=== PATIENT | female | born 1950 | race Caucasian/White ===

== ENCOUNTER 2018-07-25 13:48 | Inpatient (IN) ==
--- NOTE | 2018-07-25 14:20 | Emergency Department Note ---
Disposition Clinical Impression: Dyspnea Qualifiers: Dyspnea type: unspecified Qualified Code(s): R06.00 - Dyspnea, unspecified Anemia Qualifiers: Anemia type: unspecified type Qualified Code(s): D64.9 - Anemia, unspecified Chronic kidney disease (CKD) Qualifiers: Chronic kidney disease stage: unspecified stage Qualified Code(s): N18.9 - C hronic kidney disease, unspecified Disposition: Admitted As Inpatient Condition: Fair Forms: ED Satisfaction Letter Time of Disposition: 15:18 SOB HPI - General Chief Complaint: ED Shortness of Breath/Dyspnea Stated Complaint: SOB Time Seen by Provider: 07/25/18 14:00 Source: patient, family Mode of arrival: ambulatory Limitations: no limitations Nursing Notes Reviewed: Yes Vital Signs Reviewed: Yes - History of Present Illness Pt Subjective Complaint: shortness of breath Onset (ago): month(s) Severity: severe Consistency/Duration: intermittent, gradually worsening Improves with: nothing Worsens with: exertion Associated symptoms: Reports: cough, other (Edema) Treatment prior to arrival: other (Saw the software development intern and had an outpatient chest x-ray suggestive of congestion) - Related Data Home Medications Medication Instructions Recorded Confirmed ARIPiprazole [Abilify] 5 mg PO DAILY 09/17/17 11/25/17 Aspirin 81 mg PO DAILY 09/17/17 11/25/17 Folic Acid 1 mg PO DAILY 09/17/17 11/25/17 Furosemide [Lasix] 40 mg PO BID 09/17/17 11/25/17 Liraglutide [Victoza 2-Ben] 1.8 mg SQ QAM 09/17/17 11/25/17 Lovastatin 10 mg PO DAILY 09/17/17 11/25/17 Mirtazapine [Remeron] 15 mg PO HS 09/17/17 11/25/17 Multivit-Min/FA/Lycopen/Lutein [A 1 tab PO DAILY 09/17/17 11/25/17 Thru Z Select Multivit Tab] Omeprazole [PriLOSEC] 20 mg PO DAILY 09/17/17 11/25/17 Paricalcitol [Zemplar] 2 mcg PO DAILY 09/17/17 11/25/17 Timolol [Betimol] 1 drop RIGHT EYE DAILY 09/17/17 11/25/17 Venlafaxine HCl [Venlafaxine HCl 150 mg PO TID 09/17/17 11/25/17 ER] amLODIPine [Norvasc] 10 mg PO DAILY 09/17/17 11/25/17 lamoTRIgine [Lamictal] 200 mg PO DAILY 09/17/17 11/25/17 rOPINIRole [Requip] 0.5 mg PO TID 09/17/17 11/25/17 Ascorbate Calcium [Vitamin C] 1,000 mg PO DAILY 11/09/17 11/25/17 Clobetasol Propionate [Clobex] 1 appl TP 3XW 11/09/17 11/25/17 Cyanocobalamin (Vitamin B-12) 1,000 mcg PO DAILY 11/09/17 11/25/17 [Vitamin B12] Gabapentin [Neurontin] 800 mg PO BID 11/09/17 11/25/17 Levothyroxine Sodium [Levo-T] 112 mcg PO DAILY 11/09/17 11/25/17 Losartan Potassium [Cozaar] 100 mg PO DAILY 11/09/17 11/25/17 Metoprolol Succinate [Toprol Xl] 50 mg PO DAILY 11/09/17 11/25/17 Mv,Fe,Min/Lutein [A Thru Z Select 1 tab PO DAILY 11/09/17 11/25/17 Women's Tablet] Pimecrolimus [Elidel] 1 appl TP BID 11/09/17 11/25/17 Subcutaneous Insulin Pump [T:Slim] 1 each MC CONT 11/09/17 11/25/17 Tacrolimus [Protopic] 1 appl TP DAILY 11/09/17 11/25/17 Triamcinolone Acetonide 1 appl TP BID 11/09/17 11/25/17 Zolpidem [Ambien] 10 mg PO HS 11/09/17 11/25/17 Previous Rx's Medication Instructions Recorded HYDROcodone/Acet 7.5/325 mg [[place] 1 tab PO Q6HR PRN 3 Days #12 tablet 11/09/17 7.5-325 mg] Allergies Allergy/AdvReac Type Severity Reaction Status Date / Time Antifungal - Imidazole Allergy skin Verified 11/25/17 07:32 peeling clonazepam [From Klonopin] Allergy rash,nausea Verified 11/25/17 07:32 Sulfa (Sulfonamide Allergy See Verified 11/25/17 07:32 Antibiotics) Comments All systems ED: reviewed and negative except as stated. Constitutional: Reports: as per HPI Eyes: Reports: as per HPI ENT ED: Reports: as per HPI Cardiovascular: Reports: dyspnea on exertion, edema Respiratory: Reports: cough, dyspnea Gastrointestinal: Reports: as per HPI Genitourinary: Reports: as per HPI Musculoskeletal: Reports: as per HPI Integumentary: Reports: as per HPI Neurological: Reports: as per HPI Psychiatric: Reports: as per HPI Endocrine: Reports: as per HPI Hematological/Lymphatic: Reports: as per HPI Allergic/Immunologic: Reports: as per HPI Past Medical History - Past Medical History Source: patient Medical history: Reports: arthritis, diabetes, glaucoma, hyperlipidemia, hypertension, renal disease, thyroid disease Surgical history: Reports: appendectomy, cholecystectomy, hysterectomy, knee replacement, orthopedic, other, thyroidectomy, other Psychiatric history: Reports: anxiety, depression ELECTROMYOGRAPHIC TECHNICIAN history: Reports: no ELECTROMYOGRAPHIC TECHNICIAN history - Social History Smoking Status: Never smoker Smokeless Tobacco Status: No Alcohol use: Reports: none Drug use: Reports: none Physical Exam Tachypneic, visibly dyspneic - General Limitations: no limitations General appearance: alert - Head Head exam: atraumatic - Eye Eye exam: Present: normal appearance - ENT ENT exam: normal exam - Neck Neck exam: Present: normal inspection, full ROM - Chest Chest inspection: Present: normal inspection, symmetric chest wall rise - Respiratory Respiratory exam: Present: other (Mild rhonchi to inferior posterior areas bilaterally) - Cardiovascular Cardiovascular exam: Present: regular rate, normal rhythm, normal heart sounds - Rectal Exam Rectal exam: Present: normal inspection, normal rectal tone. Absent: bloody stool - Extremities Exam Extremities exam: Present: other (Peripheral edema at sock line) - Neurological Exam Neurological exam: Present: alert, oriented X3, CN II-XII intact - Psychiatric Psychiatric exam: Present: normal affect, normal mood - Skin Skin exam: Present: warm, dry, intact Course Course Narrative: Patient arrives complaining of dyspnea. She saw her software development intern yesterday who instructed her to present to the emergency department for possible congestive heart failure. Workup initiated Vital Signs Temperature 99.0 F 07/25/18 13:50 Pulse Rate 96 07/25/18 13:50 Respiratory Rate 20 07/25/18 13:50 Blood Pressure 142/70 07/25/18 13:50 O2 Sat by Pulse Oximetry 98 07/25/18 13:50 Temperature 99.0 F 07/25/18 14:26 Pulse Rate 96 07/25/18 14:26 Respiratory Rate 20 07/25/18 14:26 Blood Pressure 142/70 07/25/18 14:26 O2 Sat by Pulse Oximetry 98 07/25/18 14:26 Oxygen Delivery Oxygen Delivery Room Air Shortness of Breath/Dyspnea - Medical Records Medical records reviewed: Yes I reviewed the patient's medical records. - Lab Data Lab results reviewed: Yes I reviewed the patient's lab results. Result diagrams: 07/25/18 13:53 07/25/18 13:53 Lab Results 07/25/18 07/25/18 07/25/18 Range/Units 13:53 13:53 13:53 WBC 6.3 (4.3-11.1) K/mcL RBC 2.92 L (3.82-4.97) M/mcL Hgb 8.1 L (11.5-15.4) g/dL Hct 25.1 L (35.3-44.9) % MCV 86.0 (83.0-100.0) fL MCH 27.7 L (28.0-33.3) pg MCHC 32.3 (31.6-35.5) g/dL RDW 15.2 H (11.5-14.5) % Plt Count 340 (140-400) K/mcL MPV 8.6 L (9.4-12.4) fL Immature Gran % 0.5 (0-4) % Seg Neutrophils % 68.1 % Lymphocytes % 13.4 % Monocytes % 14.4 % Eosinophils % 3.0 % Basophils % 0.6 % Neutrophils # 4.3 (1.6-8.9) K/mcL Lymphocytes # 0.8 (0.6-4.6) K/mcL Monocytes # 0.9 (0.0-1.3) K/mcL Eosinophils # 0.2 (0.0-0.6) K/mcL Basophils # 0.0 (0.0-0.2) K/mcL Sodium 124 L (136-145) mEq/L Potassium 4.6 (3.5-5.1) mEq/L Chloride 93 L (98-107) mEq/L Carbon Dioxide 23 (23-29) mEq/L BUN 17 (8-23) mg/dL Creatinine 1.40 H (0.60-1.20) mg/dL Est GFR ( Amer) 46 L (> 60) Est GFR (Non-Af Amer) 38 L (> 60) BUN/Creatinine Ratio 12 (6-26) Glucose 253 H (70-105) mg/dL Calculated Osmolality 268 L (280-300) Calcium 8.8 (8.6-10.3) mg/dL Troponin I < 0.03 (< 0.04) ng/mL B-Natriuretic Peptide 358 H (Less than 100) pg/mL - Radiology Data Radiology results reviewed: Yes I reviewed the patient's radiology results. - EKG Data EKG attestation: Yes I reviewed and interpreted this EKG. EKG results narrative: Normal sinus rhythm first-degree AV block LVH rate 98 GA 248 QRS 94 QT/QTC 321/376
[2018-07-25] MEDS ORDERED: Furosemide 40 MG/4 ML VIAL IVP ONE (14:24)
[2018-07-25 15:00] LABS: BUN/Creatinine Ratio 12 (6-26); Blood Urea Nitrogen 17 mg/dL (8-23); Calcium 8.8 mg/dL (8.6-10.3); Carbon Dioxide 23 mEq/L (23-29); Chloride 93 mEq/L (98-107); Glucose 253 mg/dL (70-105); Osmolality,Calculated 268 (280-300); Potassium 4.6 mEq/L (3.5-5.1); Sodium 124 mEq/L (136-145); Troponin I < 0.03 ng/mL (< 0.04); eGFR For Non-African Americans 38 (> 60)
[2018-07-25 15:01] LABS: Basophils % 0.6 %; Eosinophils # 0.2 K/mcL (0.0-0.6); Hematocrit 25.1 % (35.3-44.9); Hemoglobin 8.1 g/dL (11.5-15.4); Immature Granulocytes % 0.5 % (0-4); Lymphocytes # 0.8 K/mcL (0.6-4.6); Lymphocytes % 13.4 %; Mean Corpuscular HGB Conc 32.3 g/dL (31.6-35.5); Mean Corpuscular Hemoglobin 27.7 pg (28.0-33.3); Mean Platelet Volume 8.6 fL (9.4-12.4); Monocytes # 0.9 K/mcL (0.0-1.3); Monocytes % 14.4 %; Neutrophils # 4.3 K/mcL (1.6-8.9); Platelet Count 340 K/mcL (140-400); Red Blood Count 2.92 M/mcL (3.82-4.97); Red Cell Distribution Width 15.2 % (11.5-14.5); Segmented Neutrophils % 68.1 %
--- NOTE | 2018-07-25 17:28 | Event Note ---
Date of Encounter: 07/25/18 Time of Encounter: 17:30 I examined this patient and my medical decision-making was reviewed with the Resident Physician Dr Ellis. I agree with the documented findings, disposition and treatment plan as described except to the extent set forth below. to serve as attestation, awaiting completion of H&P by resident Ms Luther has pmhx arthritis, diabetes, glaucoma, hyperlipidemia, hypertension,ckd, thyroid disease She ahs recent history of dyspnea on exertion and le edema. She was referred outpt to cardiology and had appt with plan for outpt echo. CXR was done and revealed pulm vasc congestion and possible bl pleural effusions. awake, dry hacking cough x5 months, le edema worsened with + orthopnea and hercules with ambulating house. no cp, pressure, palpitations. no recent travel, no exposure to occupational hazards. no sputum, fevers or chills. gen- alert, awake,appears stated age eyes- pupils equal round cv- reg rate and rhythm, normal s1,s2, no murmurs appreciated, trace pitting bl le edema no jvd lungs-diffuse exp wheezing, diminsihed bs throughout, no crackles, rhonchi appreciated, normal resp effort on ra abd- soft, non tender, non distended, + bs neuro- AAOx3,cn intact, no focal deficits Dyspnea on Exertion/LE edema- suspect given CXR and BNP 358 new dx CHF -CXR without consolidation and reads as possible effusions but definitive pulm vasc congestion -other potential cause of dyspnea may be her chronic anemia- see work up below or related to chronic cough -will trend trops, check echo, maintain on tele, strict i/os weights, serial ekgs -cardiac risk stratification with tsh, a1c, lipids but nuclear stress test 10/2017 negative for ischemia or infarct EF 70% -s/p 40 mg IV lasix this evening in ED, will assess output in am -cont home statin, bb, arb DM with insulin pump- accu checks,NO SSI, pt gives insulin via pump on checks on her own, prn hypoglycemics Hypervolemic Hyponatremia On chart review this appears chronic in nature with baseline since December being anywhere from 121-128 124 on admit - diurese, urine studies ordered, fluid restrict, seizure precautions, neuro checks Anemia, on chart review it appears she has been anemia in past but baseline is unknown, she notes months of decreasing hgb-cannot determine if acute, acute on chronic- egd 07/25 earlier today (preformed for chronic cough) normal,normal cscope 2 years ago per pt, fobt in ER is negative, check ua, at this time scds only and cont to monitor, transfuse less than hgb 7, check iron studies ?related to CKD, follows with Dr Hartley Chronic dry hacking cough- cxr neg, check vrp, flu, egd normal, speech eval to rule out aspiration, given wheezing prn nebs, may be related to chf, check dimer and may end up imaging chest pending results, outpt provider was planning on pulm eval likely being needed in near future GERD- egd today normal, omprazole HLD-statin HTN-norvasc,losartan, BB CKD stage uk- bl creat appears on our meditech review to be 1.4-1.7 this year- creat 1.4 stable, monitor with diuresis hypothyroidism-synthroid--new dose is 200 mcg daily Lamictal/Abilify are for insomnia per pt?- need to confirm doses with pharmacy as pt does not know them, hold tonight Immunosupressive Elidel?? pt not sure if taking this or why- await pharm med rec vte ppx scds further diagnoses and treatment as documented by resident
--- NOTE | 2018-07-25 18:07 | Internal Med History&Physical ---
<Ciarra Ellis - Last Filed: 07/25/18 18:08> Date of Encounter: 07/25/18 Time of Encounter: 18:07 Internal Medicine - H&P: HPI Chief complaint: shortness of breath Admitted From: Emergency Dept Plans for Post Hospital Care: Home History of present illness: Ms. Luther is a 67 year old female with past medical history of hypertension,hypothyroidism, CKD stage III, diabetes who presented to [facility] complaining of shortness of breath. She reported that she has had shortness of breath, cough, lower extremities swelling for the past 4 months. She went to manufacturing chief engineer Dr. Thompson the manufacturing chief engineer at [facility] yesterday whom told her based on a chest x-ray that she had congestive heart failure. He had ordered an echocardiogram for next Sunday. Today she had an EGD by Dr. Owens to evaluate the cough, however the EGD was normal after review of the report. Dr. Owens wanted her to have an upper G.I. swallow study tomorrow however due to the shortness of breath she had come to the hospital. she reports a 25 pound weight gain over the past 2.5 months. She has dyspnea on exertion gee n with walking within her home. She reported that she has irregular heart rhythm that she has had for many years but has not been told she has atrial fibrillation. She admits to orthopnea paroxysmal nocturnal dyspnea, wheezing,lower extremity swelling, dry cough, chills. She denies fever, chest pain, productive cough, sputum, abdominal pain, nausea, vomiting, melena, hematechezia. She reported that she has had a colonoscopy in the past that was normal. She is a DNR CCA DNI. In the ED she was noted to have chest x-ray demonstrating vascular congestion suggestive of congestive heart failure. BNP was elevated 358. Troponin negative. Past Med Surg Social Fam HX - Past Medical History Attestation: Yes The following information was validated with the patient. Source: patient Medical history: arthritis, diabetes, glaucoma, hyperlipidemia, hypertension, renal disease, thyroid disease Psychiatric history: anxiety, depression - Past Surgical History Surgical History: appendectomy, cholecystectomy, hysterectomy, knee replacement, orthopedic, other, thyroidectomy, other Additional surgical history: gastric bypass, retina sx,. Right Knee Replacement. Left foot surgery. back surgery. Bilateral Shoulder Surgery. Tubal Ligation. Eyelid Surgery - Social History Smoking Status: Former smoker Smokeless Tobacco Status: No Alcohol use: none, recent (2 beers a day for 20years) Drug use: none - Family History Father History Unknown: Yes Hx Family Cardiac Disorders: Yes ([place]) Hx Family Cancer: Yes (lung cancer) Mother Hx Family Cardiac Disorders: Yes ([place]) Hx Family Cancer: Yes ( ) Internal Medicine - H&P: Meds ARIPiprazole [Abilify] 5 mg PO DAILY 09/17/17 [History] Folic Acid 1 mg PO DAILY 09/17/17 [History] Furosemide [Lasix] 40 mg PO BID 09/17/17 [History] Lovastatin 10 mg PO DAILY 09/17/17 [History] Mirtazapine [Remeron] 15 mg PO HS 09/17/17 [History] Multivit-Min/FA/Lycopen/Lutein [A Thru Z Select Multivit Tab] 1 tab PO DAILY 09/17/17 [History] Omeprazole [PriLOSEC] 20 mg PO DAILY 09/17/17 [History] Timolol [Betimol] 1 drop RIGHT EYE QAM 09/17/17 [History] Venlafaxine HCl [Venlafaxine HCl ER] 150 mg PO DAILY 09/17/17 [History] amLODIPine [Norvasc] 10 mg PO DAILY 09/17/17 [History] lamoTRIgine [Lamictal] 200 mg PO DAILY 09/17/17 [History] Cyanocobalamin (Vitamin B-12) [Vitamin B12] 1,000 mcg PO DAILY 11/09/17 [History] Losartan Potassium [Cozaar] 100 mg PO DAILY 11/09/17 [History] Metoprolol Succinate [Toprol Xl] 50 mg PO DAILY 11/09/17 [History] Subcutaneous Insulin Pump [T:Slim] 1 each MC CONT 11/09/17 [History] Tacrolimus [Protopic] 1 appl TP DAILY PRN 11/09/17 [History] Triamcinolone Acetonide 1 appl TP BID PRN 11/09/17 [History] Cholecalciferol (D-3) [Vitamin D] 2,000 unit PO BID 07/25/18 [History] Clobetasol Propionate [Clobex] 1 applic TP DAILY PRN 07/25/18 [History] Insulin LISPRO [Admelog] 0 units SQ AD 07/25/18 [History] Levothyroxine Sodium [Synthroid] 200 mcg PO QAM 07/25/18 [History] Mupirocin [Bactroban Oint] 1 applic TP BID PRN 07/25/18 [History] Paricalcitol [Zemplar] 1 mcg PO DAILY 07/25/18 [History] Ropinirole HCl [Requip] 1.5 mg PO HS 07/25/18 [History] Zolpidem Tartrate 5 mg PO HS 07/25/18 [History] Allergy/AdvReac Type Severity Reaction Status Date / Time Antifungal - Imidazole Allergy skin Verified 11/25/17 07:32 peeling clonazepam [From Klonopin] Allergy rash,nausea Verified 11/25/17 07:32 Sulfa (Sulfonamide Allergy See Verified 11/25/17 07:32 Antibiotics) Comments All Systems PM: A 10-system review of systems was performed and is negative for pertinent findings except as documented above in the HPI. - Constitutional Constitutional: chills, no fever(s), no falls - EENT Eyes: no change in vision - Cardiovascular Cardiovascular ROS IM: dyspnea on exertion, irregular heart rhythm, orthopnea, paroxysmal nocturnal dyspnea, no chest pain, no syncope - Respiratory Respiratory: cough, wheezing, no hemoptysis, no excessive phlegm production, no change in phlegm color - Gastrointestinal Gastrointestinal: no abdominal pain, no diarrhea, no hematochezia, no melena, no nausea, no vomiting - Genitourinary Genitourinary: no dysuria - Musculoskeletal Musculoskeletal ROS IM: no joint swelling, no muscle weakness - Integumentary Integumentary IM: no pruritus, no rash - Neurological Neurological ROS: no dizziness, no focal weakness, no frequent falls, no headache(s) - Hematologic/Lymphatic Hematologic/Lymphatic: no easy bleeding - Constitutional Vitals: Temp Pulse Resp BP Pulse Ox 99.0 F 91 23 143/76 96 07/25/18 14:26 07/25/18 15:54 07/25/18 16:48 07/25/18 16:48 07/25/18 15:54 Exam: Gen.: Vitals noted. No acute distress. AAOx3 HEENT: oropharynx clear, Normocephalic, atraumatic Neck: Supple. No adenopathy. Cardiac: RRR, no murmur, +S1/S2, trace BLE edema Pulmonary: decreased breath sounds at bases bilaterally, no wheezes, rales or rhonchi, equal chest expansion Abdomen: soft, nontender, Bowel sounds noted, no guarding MSK: ROM intact, no joint swelling noted Extremities: nontender calf, no cyanosis or clubbing Neuro: A&Ox3, moves all extremities, no focal deficits Psych: Appropriate mood and behavior Internal Med - H&P Results - Labs CBC & Chem 7: 07/25/18 13:53 07/25/18 13:53 Labs: Short CBC 07/25/18 Range/Units 13:53 WBC 6.3 (4.3-11.1) K/mcL Hgb 8.1 L (11.5-15.4) g/dL Hct 25.1 L (35.3-44.9) % Plt Count 340 (140-400) K/mcL Neutrophils # 4.3 (1.6-8.9) K/mcL BMP 07/25/18 13:53 Sodium 124 L Potassium 4.6 Chloride 93 L Carbon Dioxide 23 BUN 17 Creatinine 1.40 H Glucose 253 H Calcium 8.8 Cardiac Enzymes 07/25/18 Range/Units 13:53 Troponin I < 0.03 (< 0.04) ng/mL - Impressions ITS Impressions Chest X-Ray 07/25/18 13:53 IMPRESSION: Findings again suggest congestive heart failure, not significantly changed D/ / Albert Garcia MD / Albert Garcia MD Interpreting Provider: Albert Garcia MD - Assessment and plan (1) Dyspnea Current Visit: Yes Status: Acute Assessment and plan: Dyspnea for 4 months associated with dry cough, lower extremity swelling. Admits orthopnea, paroxysmal nocturnal dyspnea, dyspnea on exertion. Denies fever, productive cough. she was told by her manufacturing chief engineer Dr. Mantilla yesterday that he was concerned she had CHF. -nuclear stress test 10/2017 negative for ischemia or infarct EF 70% -Etiology is concerning for congestive heart failure. Differential includes anemia, COPD as she is a former smoker, influenza, respiratory virus, PE. -febrile, WBC WNL -chest x-ray demonstrating vascular congestion suggestive of congestive heart failure. -BNP was elevated 358 -Troponin negative plan: -echocardiogram pending -continue IV Lasix -trend troponins -continue telemetry -strict I&O, daily weight, fluid restrictive diet -repeat EKG -pending respiratory infectious panel, influenza, D dimer -she was on immunosuppression with Elidel. We will talk with pharmacy tomorrow to find out why during med rec Qualifiers: Dyspnea type: dyspnea on exertion Qualified Code(s): R06.09 - Other forms of dyspnea (2) Anemia Current Visit: Yes Status: Acute Assessment and plan: anemia with hemoglobin 8.1 -hemoglobin baseline may be 11 however there has been a trend of hemoglobin decreasing. -MCV 86 -no obvious active bleeding, patient denies melena, hematachezia. She reports being up-to-date on colonoscopy. -stool occult negative Plan: - will order iron studies, folic acid, vitamin B12 Qualifiers: Anemia type: unspecified type Qualified Code(s): D64.9 - Anemia, unspecified (3) Hyponatremia Current Visit: Yes Status: Acute Assessment and plan: hyponatremia sodium 124. looks to be chronically hyponatremia with sodium ranging from 122-133 over this past year -appears to be hypervolemic hyponatremia -may be secondary to new congestive heart failure, medications such as lamictal, polydipsia -serum osmolality 268 plan: -pending urine osmolality and urine sodium -fluid restriction -ontinue diuresis with Lasix -will continue to monitor sodium (4) Chronic cough Current Visit: Yes Status: Acute Assessment and plan: chronic cough for 4 months etiology may be secondary to new congestive heart failure. Patient is on medication for Gerd. No infectious process on chest x-ray. history of smoking but no diagnosis of COPD. Chest x-ray was negative for infectious process. 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 creatinine 1.4, she is at baseline (1.4- 1.7) GFR 38 plan: -chronic kidney disease is at baseline. Will continue to monitor serum creatinine -will avoid nephrotoxic agents and renal dose medications -monitor I&O Qualifiers: Chronic kidney disease stage: stage 3 (moderate) Qualified Code(s): N18.3 - Chronic kidney disease, stage 3 (moderate) (6) Hypertension Current Visit: Yes Status: Acute Assessment and plan: history of known hypertension blood pressure stable -continue home amlodipine, Toprol, losartan Qualifiers: Qualified Code(s): I10 - Essential (primary) hypertension (7) Hypothyroidism Current Visit: Yes Status: Acute Assessment and plan: history of known hypothyroidism -check TSH Qualifiers: Qualified Code(s): E03.9 - Hypothyroidism, unspecified (8) Diabetes mellitus Current Visit: Yes Status: Acute Assessment and plan: history of diabetes on insulin pump -will check a hemoglobin A1C -Accu check -diabetic diet Qualifiers: Qualified Code(s): E11.9 - Type 2 diabetes mellitus without complications (9) DVT prophylaxis Current Visit: Yes Status: Acute Assessment and plan: SCD. no anticoagulation due to anemia - Time Spent With Patient Total time spent is greater than 50% in coordination of care (as documented) at patient's floor/unit and/or counseling patient: <Ayah Jerez - Last Filed: 07/26/18 08:12> Date of Encounter: 07/26/18 Internal Medicine - H&P: HPI History of present illness: Ms. Luther is a 67 year old female All Systems PM: A 10-system review of systems was performed and is negative for pertinent findings except as documented above in the HPI. - Constitutional Vitals: Temp Pulse Resp BP Pulse Ox 98.4 F 97 19 144/74 95 07/26/18 07:52 07/26/18 07:52 07/26/18 07:52 07/26/18 07:52 07/26/18 07:52 Internal Med - H&P Results - Labs CBC & Chem 7: 07/26/18 01:53 07/26/18 01:53 Labs: Short CBC 07/25/18 07/26/18 Range/Units 13:53 01:53 WBC 6.3 5.4 (4.3-11.1) K/mcL Hgb 8.1 L 7.8 L (11.5-15.4) g/dL Hct 25.1 L 24.0 L (35.3-44.9) % Plt Count 340 307 (140-400) K/mcL Neutrophils # 4.3 3.0 (1.6-8.9) K/mcL BMP 07/25/18 07/26/18 13:53 01:53 Sodium 124 L 128 L Potassium 4.6 4.2 Chloride 93 L 96 L Carbon Dioxide 23 25 BUN 17 18 Creatinine 1.40 H 1.33 H Glucose 253 H 170 H Calcium 8.8 8.4 L Cardiac Enzymes 07/25/18 07/25/18 07/26/18 Range/Units 13:53 19:39 01:53 Troponin I < 0.03 < 0.03 < 0.03 (< 0.04) ng/mL Urine 07/26/18 Range/Units 04:45 Urine Color Yellow (Yellow) Urine Clarity Clear (Clear) Urine pH 6.0 (5.0-8.0) pH Units Ur Specific [place] < 1.005 L (1.010-1.025) Urine Protein 30 H (Neg-Trace) mg/dL Urine Glucose (UA) Normal (Normal) mg/dL - Impressions ITS Impressions Chest X-Ray 07/25/18 13:53 IMPRESSION: Findings again suggest congestive heart failure, not significantly changed D/ / Albert Garcia MD / Albert Garcia MD Interpreting Provider: Albert Garcia MD - Assessment and plan (1) Dyspnea Current Visit: Yes Status: Acute Qualifiers: Dyspnea type: dyspnea on exertion Qualified Code(s): R06.09 - Other forms of dyspnea (2) Anemia Current Visit: Yes Status: Acute Qualifiers: Anemia type: unspecified type Qualified Code(s): D64.9 - Anemia, unspecified (3) Chronic kidney disease (CKD) Current Visit: Yes Status: Acute Qualifiers: Chronic kidney disease stage: stage 3 (moderate) Qualified Code(s): N18.3 - Chronic kidney disease, stage 3 (moderate) (4) Diabetes mellitus Current Visit: Yes Status: Acute Qualifiers: Qualified Code(s): E11.9 - Type 2 diabetes mellitus without complications (5) Hyponatremia Current Visit: Yes Status: Acute (6) Chronic cough Current Visit: Yes Status: Acute (7) Hypothyroidism Current Visit: Yes Status: Acute Qualifiers: Qualified Code(s): E03.9 - Hypothyroidism, unspecified (8) Hypertension Current Visit: Yes Status: Acute Qualifiers: Qualified Code(s): I10 - Essential (primary) hypertension (9) DVT prophylaxis Current Visit: Yes Status: Acute - Time Spent With Patient Total time spent is greater than 50% in coordination of care (as documented) at patient's floor/unit and/or counseling patient: - Attending Attestation I examined this patient and my medical decision-making was reviewed with the Resident Physician Dr Ellis. I agree with the documented findings, disposition and treatment plan as described except to the extent set forth below. Ms Luther has pmhx arthritis, diabetes, glaucoma, hyperlipidemia, hypertension,ckd, thyroid disease She ahs recent history of dyspnea on exertion and le edema. She was referred outpt to cardiology and had appt with plan for outpt echo. CXR was done and revealed pulm vasc congestion and possible bl pleural effusions. awake, dry hacking cough x5 months, le edema worsened with + orthopnea and hercules with ambulating house. no cp, pressure, palpitations. no recent travel, no exposure to occupational hazards. no sputum, fevers or chills. gen- alert, awake,appears stated age eyes- pupils equal round cv- reg rate and rhythm, normal s1,s2, no murmurs appreciated, trace pitting bl le edema no jvd lungs-diffuse exp wheezing, diminsihed bs throughout, no crackles, rhonchi appreciated, normal resp effort on ra abd- soft, non tender, non distended, + bs neuro- AAOx3,cn intact, no focal deficits Dyspnea on Exertion/LE edema- suspect given CXR and BNP 358 new dx CHF -CXR without consolidation and reads as possible effusions but definitive pulm vasc congestion -other potential cause of dyspnea may be her chronic anemia- see work up below or related to chronic cough -will trend trops, check echo, maintain on tele, strict i/os weights, serial ekgs -cardiac risk stratification with tsh, a1c, lipids but nuclear stress test 10/2017 negative for ischemia or infarct EF 70% -s/p 40 mg IV lasix this evening in ED, will assess output in am -cont home statin, bb, arb DM with insulin pump- accu checks,NO SSI, pt gives insulin via pump on checks on her own, prn hypoglycemics Hypervolemic Hyponatremia On chart review this appears chronic in nature with baseline since December being anywhere from 121-128 124 on admit - diurese, urine studies ordered, fluid restrict, seizure precautions, neuro checks Anemia, on chart review it appears she has been anemia in past but baseline is unknown, she notes months of decreasing hgb-cannot determine if acute, acute on chronic- egd 07/25 earlier today (preformed for chronic cough) normal,normal cscope 2 years ago per pt, fobt in ER is negative, check ua, at this time scds only and cont to monitor, transfuse less than hgb 7, check iron studies ?related to CKD, follows with Dr Hartley Chronic dry hacking cough- cxr neg, check vrp, flu, egd normal, speech eval to rule out aspiration, given wheezing prn nebs, may be related to chf, check dimer and may end up imaging chest pending results, outpt provider was planning on pulm eval likely being needed in near future GERD- egd today normal, omprazole HLD-statin HTN-norvasc,losartan, BB CKD stage uk- bl creat appears on our meditech review to be 1.4-1.7 this year- creat 1.4 stable, monitor with diuresis hypothyroidism-synthroid--new dose is 200 mcg daily Lamictal/Abilify are for insomnia per pt?- need to confirm doses with pharmacy as pt does not know them, hold tonight Immunosupressive Elidel?? pt not sure if taking this or why- await pharm med rec vte ppx scds further diagnoses and treatment as documented by resident
[2018-07-25] MEDS ORDERED: D5% in Water 1,000 ML IVC PRN (18:09)
[2018-07-25] MEDS ORDERED: *HR* Dextrose 50 % in Water (Syg) 50 ML SYRINGE IVP PRN (18:09)
[2018-07-25] MEDS ORDERED: Dextrose Gel 15 GM/37.5 ML TUBE PO PRN ×2 (18:09)
[2018-07-25] MEDS ORDERED: Ipratropium/Albuterol Neb 3 ML IH SCH (18:15)
[2018-07-25] MEDS ORDERED: Perflutren Lipid Microsphere 1.3 ML in 0.9 % Sodium Chloride 8.7 ML IVP ONE (18:41)
[2018-07-25] MEDS: Ipratropium/Albuterol Neb 3 ML IH SCH (21:20)
[2018-07-26 02:07] LABS: Basophils % 0.6 %; Eosinophils # 0.2 K/mcL (0.0-0.6); Eosinophils % 3.3 %; Hemoglobin 7.8 g/dL (11.5-15.4); Immature Granulocytes % 0.4 % (0-4); Lymphocytes # 1.2 K/mcL (0.6-4.6); Lymphocytes % 21.9 %; Mean Corpuscular HGB Conc 32.5 g/dL (31.6-35.5); Mean Platelet Volume 8.2 fL (9.4-12.4); Monocytes % 18.8 %; Platelet Count 307 K/mcL (140-400); Red Blood Count 2.79 M/mcL (3.82-4.97); Red Cell Distribution Width 15.2 % (11.5-14.5)
[2018-07-26 02:28] LABS: Calcium 8.4 mg/dL (8.6-10.3); Chol/HDL Ratio 1.7 (0-4.9); Potassium 4.2 mEq/L (3.5-5.1)
[2018-07-26 02:37] LABS: Platelet Estimate Normal (Normal)
[2018-07-26 02:38] LABS: Adenovirus Not Detected (Not Detect); Bordetella Pertussis Not Detected (Not Detect); Chlamydophila pneumoniae Not Detected (Not Detect); Coronavirus 229E Not Detected (Not Detect); Coronavirus HKU1 Not Detected (Not Detect); Coronavirus NL63 Not Detected (Not Detect); Coronavirus OC43 Not Detected (Not Detect); Human Metapneumovirus Not Detected (Not Detect); Human Rhinovirus/Enterovirus Not Detected (Not Detect); Influenza A Subtype 2009 H1 Not Detected (Not Detect); Influenza A Untypeable Not Detected (Not Detect); Influenza B Not Detected (Not Detect); Mycoplasma pneumoniae Not Detected (Not Detect); Parainfluenza Virus 1 Not Detected (Not Detect); Parainfluenza Virus 2 Not Detected (Not Detect); Parainfluenza Virus 3 Not Detected (Not Detect); Parainfluenza Virus 4 Not Detected (Not Detect); Respiratory Syncytial Virus Not Detected (Not Detect)
[2018-07-26 02:53] LABS: Vitamin B12 1198 pg/mL (250-1100)
[2018-07-26 03:08] LABS: Ferritin 27 ng/mL (10-120); Folate > 22.3 ng/mL (3.0-16.0); Iron < 10 mcg/dL (50-170); Transferrin 223 mg/dL (203-362)
[2018-07-26] MEDS: Ipratropium/Albuterol Neb 3 ML IH SCH ×4 (04:03→22:46)
[2018-07-26] MEDS: Acetaminophen 325 MG TABLET PO PRN (04:55)
[2018-07-26 05:30] LABS: Bilirubin,Urine Negative (Negative); Blood,Urine Negative (Negative); Clarity,Urine Clear (Clear); Color,Urine Yellow (Yellow); Glucose,Urine (UA) Normal (Normal); Ketones,Urine Negative (Negative); Leukocyte Esterase,Urine Negative (Negative); Nitrite,Urine Negative (Negative); Protein,Urine 30 mg/dL (Neg-Trace); Specific Gravity,Urine < 1.005 (1.010-1.025); Urobilinogen,Urine Normal (Normal)
[2018-07-26 05:38] LABS: Bacteria,Urine Few per hpf (None-Few); Squamous Epithelial Cell,Urine Few per lpf (None-Few); WBC,Urine 0-3 per hpf (0-3)
--- NOTE | 2018-07-26 06:05 | Electrocardiograph Report ---
[facility] Test Date: 2018-07-25 Pat Name: Shikha Luther Department: 104 Room: 2A26 Gender: F Program Lead: : 1950 Requested By: Bert Joseph Order Number: [id number] Reading MD: Dane Krishnamurthy Measurements Intervals [place] Rate: 98 P: 106 IA: 248 QRS: -43 QRSD: 94 T: 52 QT: 321 QTc: 376 Interpretive Statements SINUS RHYTHM Electronically Signed On 07-26-2018 6:03:38 EST by Dane Krishnamurthy
[2018-07-26 07:31] LABS: Estimated Average Glucose 154 mg/dl
[2018-07-26] MEDS: Furosemide 40 MG/4 ML VIAL IVP SCH (09:15)
[2018-07-26] MEDS: Metoprolol XL (24 HR) Succ 50 MG TAB.ER.24H PO SCH (09:15)
[2018-07-26] MEDS: amLODIPine 5 MG TABLET PO SCH (09:15)
--- NOTE | 2018-07-26 09:19 | Internal Med Progress Note ---
<Ayah Jerez - Last Filed: 07/26/18 14:06> Hospitalist Progress Note - Encounter Date of Encounter: 07/26/18 - Exam Vitals: Temp Pulse Resp BP Pulse Ox 98.5 F 81 19 131/65 91 07/26/18 11:22 07/26/18 11:22 07/26/18 11:22 07/26/18 11:22 07/26/18 11:22 - Assessment and Plan (1) Dyspnea Current Visit: Yes Status: Acute (2) Anemia Current Visit: Yes Status: Acute (3) Chronic kidney disease (CKD) Current Visit: Yes Status: Acute (4) Diabetes mellitus Current Visit: Yes Status: Acute (5) Hyponatremia Current Visit: Yes Status: Acute (6) Chronic cough Current Visit: Yes Status: Acute (7) Hypothyroidism Current Visit: Yes Status: Acute (8) Hypertension Current Visit: Yes Status: Acute (9) DVT prophylaxis Current Visit: Yes Status: Acute - Time Spent with Patient Total time spent is greater than 50% in coordination of care (as documented) at patient's floor/unit and/or counseling patient: Internal Medicine: Result - Labs CBC & Chem 7: 07/26/18 01:53 07/26/18 01:53 Labs: Short CBC 07/25/18 07/26/18 Range/Units 13:53 01:53 WBC 6.3 5.4 (4.3-11.1) K/mcL Hgb 8.1 L 7.8 L (11.5-15.4) g/dL Hct 25.1 L 24.0 L (35.3-44.9) % Plt Count 340 307 (140-400) K/mcL Neutrophils # 4.3 3.0 (1.6-8.9) K/mcL BMP 07/25/18 07/26/18 13:53 01:53 Sodium 124 L 128 L Potassium 4.6 4.2 Chloride 93 L 96 L Carbon Dioxide 23 25 BUN 17 18 Creatinine 1.40 H 1.33 H Glucose 253 H 170 H Calcium 8.8 8.4 L Cardiac Enzymes 07/25/18 07/25/18 07/26/18 Range/Units 13:53 19:39 01:53 Troponin I < 0.03 < 0.03 < 0.03 (< 0.04) ng/mL 07/26/18 Range/Units 08:03 Troponin I < 0.03 (< 0.04) ng/mL Urine 07/26/18 Range/Units 04:45 Urine Color Yellow (Yellow) Urine Clarity Clear (Clear) Urine pH 6.0 (5.0-8.0) pH Units Ur Specific Garfield < 1.005 L (1.010-1.025) Urine Protein 30 H (Neg-Trace) mg/dL Urine Glucose (UA) Normal (Normal) mg/dL - ABG Interpretation ABG results: PT/INR, D-dimer D-Dimer 1346 ng/mLFEU (0-500) H 07/25/18 18:27 - Impressions Impressions Chest X-Ray 07/25/18 13:53 IMPRESSION: Findings again suggest congestive heart failure, not significantly changed D/ / Albert Garcia MD / Albert Garcia MD Interpreting Provider: Albert Garcia MD Echocardiogram 07/25/18 17:07 Impressions: Technically sub-optimal due to poor echocardiographic windows. LVEF 60%. Normal LV wall thickness and function. Mildly dilated left ventricle. Mild left ventricular diastolic dysfunction. Right ventricle was not well visualized. Grossly, it is mildly dilated with normal function. Unable to estimate RVSP due to lack of TR jet. No significant valvular dysfunction. Left Ventricular Wall Motion: Rest Echo Findings All wall segments showed normal motion. Findings: Study Quality * Technically sub-optimal due to poor echocardiographic windows. ECG Findings * Normal sinus rhythm. Left Ventricle * LVEF 60%. * Normal LV wall thickness and function. * Mildly dilated left ventricle. * Mild left ventricular diastolic dysfunction. Right Ventricle * Right ventricle was not well visualized. Grossly, it is mildly dilated with normal function. Left Atrium * Mildly dilated left atrium. Right Atrium * Mildly dilated right atrium. Aortic Valve * Aortic valve not well visualized. * No aortic stenosis. * No aortic regurgitation. Mitral Valve * Normal mitral valve structure and function. * No mitral regurgitation. * No mitral stenosis. Tricuspid Valve * Normal tricuspid valve structure and function. * No tricuspid regurgitation. * Unable to estimate RVSP due to lack of TR jet. Pulmonic Valve * Pulmonic valve not well visualized. * No pulmonic regurgitation. Aorta * Normally sized aortic root. Pericardium * The pericardium appears normal. IVC * The IVC is not well evaluated. Pulmonary Artery * Pulmonary artery not well visualized. Chest CTA 07/26/18 12:00 IMPRESSION: 1. No evidence of pulmonary embolism. 2. Patchy airspace opacities in the right middle and lower lobes, concerning for pneumonia. 3. Small bilateral pleural effusions, right greater than left. 4. Coronary atherosclerosis. D/ / 07/26/2018 13:38:14 Anshul Pantoja MD / prashanth Interpreting Provider: Anshul Pantoja MD Consult Discharge Plan - Plan Referrals: Sirena Guy MD [Primary Care Provider] - 08/05/18 9:30 am (Please follow up as schedule...) - Attending Attestation I examined this patient and my medical decision-making was reviewed with the Resident Physician Dr Ellis. I agree with the documented findings, disposition and treatment plan as described except to the extent set forth below. Ms Luther has pmhx arthritis, diabetes, glaucoma, hyperlipidemia, hypertension,ckd, thyroid disease She is admitted for dyspnea on exertion and le edema. awake, no fevers, chills. cont dry hacking cough. no sob at rest. no wheezing or chest tightness. no change in le edema yet. gen- alert, awake,appears stated age eyes- pupils equal round cv- reg rate and rhythm, normal s1,s2, no murmurs appreciated, trace pitting bl le edema lungs-diminsihed bs no crackles, rhonchi appreciated, normal resp effort on ra abd- soft, non tender, non distended, + bs neuro- AAOx3,cn intact, no focal deficits Dyspnea on Exertion/LE edema- suspect given CXR and BNP 358 new dx CHF -other potential cause of dyspnea may be her chronic anemia- see work up below or related to pna, no signs ischemic CVD -echo with mild Diastolic dysfunction -cont home statin, bb, arb Hypervolemic Hyponatremia On chart review this appears chronic in nature with baseline since December being anywhere from 121-128 -slow improvement with diuresis Anemia, on chart review it appears she has been anemia in past but baseline is unknown, she notes months of decreasing hgb-cannot determine if acute, acute on chronic- egd 07/25 normal,normal cscope 2 years ago per pt, fobt in ER is negative, ua neg, at this time scds only and cont to monitor, transfuse less than hgb 7, + DANELLE- begin ferrous sulfate Chronic dry hacking cough 2/2 Pna, organism uk, acquired in community - cxr neg, egd normal, checked dimer and elevated so obtained CTA --+ pna - rocpehin + azithro CKD stage uk- bl creat appears on our meditech review to be 1.4-1.7 this year- creat 1.4 stable, monitor with diuresis and cta further diagnoses and treatment as documented by resident <Ciarra Ellis - Last Filed: 07/26/18 15:29> Hospitalist Progress Note - Encounter Date of Encounter: 07/26/18 Time of Encounter: 09:16 - Subjective Interval History: Patient seen and examined at bedside. She is alert and oriented times 3. She reported that she did not sleep well last night due to coughing. She denies fever, chills, chest pain, shortness of breath, nausea, vomiting, abdominal pain. She reported that speech therapy evaluate her today and is not believe that she was aspirating or having difficulty swelling. She also had her echocardiogram this morning. - Exam Vitals: Temp Pulse Resp BP Pulse Ox 98.4 F 97 19 144/74 95 07/26/18 07:52 07/26/18 07:52 07/26/18 07:52 07/26/18 07:52 07/26/18 07:52 Exam: Gen.: Vitals noted. No acute distress. AAOx3 HEENT: oropharynx clear, Normocephalic, atraumatic Neck: Supple. No adenopathy. Cardiac: RRR, no murmur, +S1/S2, trace BLE edema Pulmonary: CTA bilaterally, minimal upper lobe wheezes, no rales or rhonchi, equal chest expansion Abdomen: soft, nontender, Bowel sounds noted, no guarding Extremities: nontender calf, no cyanosis or clubbing Neuro: A&Ox3, moves all extremities, no focal deficits Psych: Appropriate mood and behavior - Assessment and Plan (1) Dyspnea Current Visit: Yes Status: Acute Assessment and Plan: Dyspnea for 4 months associated with dry cough, lower extremity swelling. Admits orthopnea, paroxysmal nocturnal dyspnea, dyspnea on exertion. Denies fever, productive cough. she was told by her orthotics prosthetics technician Dr. Mantilla yesterday that he was concerned she had CHF. -nuclear stress test 10/2017 negative for ischemia or infarct EF 70% -Etiology is concerning for congestive heart failure. Differential includes anemia, COPD as she is a former smoker, influenza, respiratory virus, PE. -febrile, WBC WNL -chest x-ray demonstrating vascular congestion suggestive of congestive heart failure. -BNP was elevated 358 -Troponin negative x3 -D dimer 1346 -respiratory infectious panel, influenza negative -echocardiogram LVEF 60%, mild diastolic dysfunction, no valvular dysfunction -CTA demonstrated no PE, patchy opacities in right middle and lower lobes concerning for pneumonia, and small b/l pleural effusion with right greater than left. plan: -CTA demonstrates findings of pneumonia, will start rocephin and azithromycin as this is likely CAP. -continue IV Lasix -continue telemetry may proceed with CTA, -strict I&O, daily weight, fluid restrictive diet (2) Pneumonia Current Visit: Yes Status: Acute Assessment and Plan: CTA demonstrates findings of pneumonia -plan as above (3) Anemia Current Visit: Yes Status: Acute Assessment and Plan: anemia with hemoglobin 8.1 at admission -Hgb 7.8 -hemoglobin baseline may be 11 however there has been a trend of hemoglobin decreasing. -MCV 86 -no obvious active bleeding, patient denies melena, hematachezia. She reports being up-to-date on colonoscopy. -stool occult negative -folic acid, vitamin B12 elevated -iron <10, trasferrin 223, ferritin 27 Plan: -iron panel demonstrated iron deficiency that is likely secondary to CKD -order ferrous sulfate -will continue to monitor (4) Hyponatremia Current Visit: Yes Status: Acute Assessment and Plan: hyponatremia sodium 124. looks to be chronically hyponatremia with sodium ranging from 122-133 over this past year -appears to be hypervolemic hyponatremia -may be secondary to new congestive heart failure, medications such as lamictal, polydipsia -Na 128 improved -serum osmolality 272 -urine osm 231, urine sodium 34.3 plan: -sodium improving with current therapy -fluid restriction -continue diuresis with Lasix -will continue to monitor sodium (5) Chronic cough Current Visit: Yes Status: Acute Assessment and Plan: chronic cough for 4 months etiology may be secondary to new congestive heart failure. Patient is on medication for Gerd. No infectious process on chest x-ray. history of smoking but no diagnosis of COPD. Chest x-ray was negative for infectious process. EGD was normal speech evaluation recommend current diet, no dysfunction -maybe related to PNA seen on chest CT. Continue tx as above -duonebs PRN -rest of plan as above (6) Chronic kidney disease (CKD) Current Visit: Yes Status: Acute Assessment and Plan: known history of chronic kidney disease stage III following with the church administrator Dr. Hartley. creatinine 1.33, she is at baseline (1.4- 1.7) GFR 38 plan: -Pt has contrast CT will monitor Cr as this may worsen within the next 48-72hr -chronic kidney disease is at baseline. Will continue to monitor serum creatinine -will avoid nephrotoxic agents and renal dose medications -monitor I&O (7) Hypertension Current Visit: Yes Status: Acute Assessment and Plan: history of known hypertension blood pressure stable -continue home amlodipine, Toprol, losartan (8) Hypothyroidism Current Visit: Yes Status: Acute Assessment and Plan: history of known hypothyroidism -TSH 8.062 elevated -patient stated that her PCP has been titrating her medication. Instructed her to f/u with PCP (9) Diabetes mellitus Current Visit: Yes Status: Acute Assessment and Plan: history of diabetes on insulin pump hemoglobin A1C 7 -continue with insulin pump -Accu check -diabetic diet (10) DVT prophylaxis Current Visit: Yes Status: Acute Assessment and Plan: SCD. no anticoagulation due to anemia - Time Spent with Patient Total time spent is greater than 50% in coordination of care (as documented) at patient's floor/unit and/or counseling patient: Internal Medicine: Result - Labs CBC & Chem 7: 07/26/18 01:53 07/26/18 01:53 Labs: Short CBC 07/25/18 07/26/18 Range/Units 13:53 01:53 WBC 6.3 5.4 (4.3-11.1) K/mcL Hgb 8.1 L 7.8 L (11.5-15.4) g/dL Hct 25.1 L 24.0 L (35.3-44.9) % Plt Count 340 307 (140-400) K/mcL Neutrophils # 4.3 3.0 (1.6-8.9) K/mcL BMP 11/29/18 11/30/18 13:53 01:53 Sodium 124 L 128 L Potassium 4.6 4.2 Chloride 93 L 96 L Carbon Dioxide 23 25 BUN 17 18 Creatinine 1.40 H 1.33 H Glucose 253 H 170 H Calcium 8.8 8.4 L Cardiac Enzymes 07/25/18 07/25/18 07/26/18 Range/Units 13:53 19:39 01:53 Troponin I < 0.03 < 0.03 < 0.03 (< 0.04) ng/mL 07/26/18 Range/Units 08:03 Troponin I < 0.03 (< 0.04) ng/mL Urine 07/26/18 Range/Units 04:45 Urine Color Yellow (Yellow) Urine Clarity Clear (Clear) Urine pH 6.0 (5.0-8.0) pH Units Ur Specific Garfield < 1.005 L (1.010-1.025) Urine Protein 30 H (Neg-Trace) mg/dL Urine Glucose (UA) Normal (Normal) mg/dL - ABG Interpretation ABG results: PT/INR, D-dimer D-Dimer 1346 ng/mLFEU (0-500) H 07/25/18 18:27 - Impressions Impressions Chest X-Ray 07/25/18 13:53 IMPRESSION: Findings again suggest congestive heart failure, not significantly changed D/ / Albert Garcia MD / Albert Garcia MD Interpreting Provider: Albert Garcia MD <Ayah Jerez - Last Filed: 07/26/18 14:06> (1) Dyspnea Qualifiers: Dyspnea type: dyspnea on exertion Qualified Code(s): R06.09 - Other forms of dyspnea (2) Anemia Qualifiers: Anemia type: unspecified type Qualified Code(s): D64.9 - Anemia, unspecified (3) Chronic kidney disease (CKD) Qualifiers: Chronic kidney disease stage: stage 3 (moderate) Qualified Code(s): N18.3 - Chronic kidney disease, stage 3 (moderate) (4) Diabetes mellitus Qualifiers: Qualified Code(s): E11.9 - Type 2 diabetes mellitus without complications (7) Hypothyroidism Qualifiers: Qualified Code(s): E03.9 - Hypothyroidism, unspecified (8) Hypertension Qualifiers: Qualified Code(s): I10 - Essential (primary) hypertension <Ciarra Ellis - Last Filed: 07/26/18 15:29> (1) Dyspnea Qualifiers: Dyspnea type: dyspnea on exertion Qualified Code(s): R06.09 - Other forms of dyspnea (3) Anemia Qualifiers: Anemia type: unspecified type Qualified Code(s): D64.9 - Anemia, unspecified (6) Chronic kidney disease (CKD) Qualifiers: Chronic kidney disease stage: stage 3 (moderate) Qualified Code(s): N18.3 - Chronic kidney disease, stage 3 (moderate) (7) Hypertension Qualifiers: Qualified Code(s): I10 - Essential (primary) hypertension (8) Hypothyroidism Qualifiers: Qualified Code(s): E03.9 - Hypothyroidism, unspecified (9) Diabetes mellitus Qualifiers: Qualified Code(s): E11.9 - Type 2 diabetes mellitus without complications
[2018-07-26] MEDS ORDERED: Isovue-370 500 ML INFUS..BTL IV ONE (09:35)
[2018-07-26] MEDS ORDERED: CLOBETASOL PROPIONATE 15 GM TUBE TP PRN (10:47)
[2018-07-26] MEDS ORDERED: Azithromycin 250 MG TABLET PO ONE (14:22)
[2018-07-26] MEDS: cefTRIAXone 1,000 MG in Water for inj. (sterile) 20 ML 10 ML IVP SCH (16:44)
[2018-07-26] MEDS: Insulin LISPRO 300 UNITS/3 ML VIAL SQ SCH ×2 (18:59→23:10)
[2018-07-26] MEDS ORDERED: Benzonatate 100 MG CAPSULE PO PRN (22:39)
[2018-07-27] MEDS: Ipratropium/Albuterol Neb 3 ML IH SCH ×4 (03:57→21:11)
[2018-07-27 05:54] LABS: Basophils % 0.4 %; Eosinophils # 0.2 K/mcL (0.0-0.6); Eosinophils % 3.3 %; Hematocrit 27.1 % (35.3-44.9); Hemoglobin 8.6 g/dL (11.5-15.4); Immature Granulocytes % 0.4 % (0-4); Lymphocytes # 1.4 K/mcL (0.6-4.6); Lymphocytes % 21.3 %; Mean Corpuscular HGB Conc 31.7 g/dL (31.6-35.5); Mean Corpuscular Hemoglobin 28.1 pg (28.0-33.3); Mean Corpuscular Volume 88.6 fL (83.0-100.0); Mean Platelet Volume 8.5 fL (9.4-12.4); Monocytes % 14.5 %; Platelet Count 369 K/mcL (140-400); Red Blood Count 3.06 M/mcL (3.82-4.97); Red Cell Distribution Width 15.9 % (11.5-14.5); Segmented Neutrophils % 60.1 %
[2018-07-27 06:16] LABS: Calcium 8.7 mg/dL (8.6-10.3)
[2018-07-27] MEDS: Metoprolol XL (24 HR) Succ 50 MG TAB.ER.24H PO SCH (09:05)
[2018-07-27] MEDS: Venlafaxine XR (24 HR) 150 MG CAP.ER.24H PO SCH (09:05)
[2018-07-27] MEDS: amLODIPine 5 MG TABLET PO SCH (09:06)
[2018-07-27] MEDS: ARIPiprazole 5 MG TABLET PO SCH (09:06)
[2018-07-27] MEDS: Azithromycin 250 MG TABLET PO SCH (09:06)
[2018-07-27] MEDS: lamoTRIgine 100 MG TABLET PO SCH (09:06)
[2018-07-27] MEDS: Insulin LISPRO 300 UNITS/3 ML VIAL SQ SCH ×4 (09:07→21:03)
[2018-07-27] MEDS: Furosemide 40 MG/4 ML VIAL IVP SCH (09:07)
[2018-07-27] MEDS: cefTRIAXone 1,000 MG in Water for inj. (sterile) 20 ML 10 ML IVP SCH (09:07)
--- NOTE | 2018-07-27 10:12 | Internal Med Progress Note ---
<Ciarra Ellis - Last Filed: 07/27/18 13:10> Hospitalist Progress Note - Encounter Date of Encounter: 07/27/18 Time of Encounter: 10:10 - Subjective Interval History: Patient seen and examined at bedside. She is alert and oriented times 3. She reports that her cough has improved and she now only has it at night rather than throughout the day. She does still feel week. She denies fever, chills, chest pain, shortness of breath, nausea, vomiting, abdominal pain. - Exam Vitals: Temp Pulse Resp BP Pulse Ox 98.5 F 98 18 187/73 95 07/27/18 08:11 07/27/18 08:11 07/27/18 08:11 07/27/18 08:11 07/27/18 08:11 Exam: Gen.: Vitals noted. No acute distress. AAOx3 HEENT: oropharynx clear, Normocephalic, atraumatic Neck: Supple. No adenopathy. Cardiac: RRR, no murmur, +S1/S2, trace BLE edema Pulmonary: CTA bilaterally, minimal lower lobe wheezes, no rales or rhonchi, equal chest expansion Abdomen: soft, nontender, Bowel sounds noted, no guarding Extremities: nontender calf, no cyanosis or clubbing Neuro: A&Ox3, moves all extremities, no focal deficits Psych: Appropriate mood and behavior - Assessment and Plan (1) Dyspnea Current Visit: Yes Status: Acute Assessment and Plan: Dyspnea for 4 months associated with dry cough, lower extremity swelling. Admits orthopnea, paroxysmal nocturnal dyspnea, dyspnea on exertion. Denies fever, productive cough. she was told by her healthcare or medical Dr. Mantilla yesterday that he was concerned she had CHF. -nuclear stress test 10/2017 negative for ischemia or infarct EF 70% -Etiology is concerning for congestive heart failure. Differential includes anemia, COPD as she is a former smoker, influenza, respiratory virus, PE. -febrile, WBC WNL -chest x-ray demonstrating vascular congestion suggestive of congestive heart failure. -BNP was elevated 358 -Troponin negative x3 -D dimer 1346 -respiratory infectious panel, influenza negative -echocardiogram LVEF 60%, mild diastolic dysfunction, no valvular dysfunction -CTA demonstrated no PE, patchy opacities in right middle and lower lobes concerning for pneumonia, and small b/l pleural effusion with right greater than left. plan: -pneumonia found on CT. Continue Rocephin and azithromycin day 2 -ordered legionella since patient has hyponatremia -continue IV Lasix -continue telemetry -strict I&O, daily weight, fluid restrictive diet (2) Anemia Current Visit: Yes Status: Acute Assessment and Plan: anemia with hemoglobin 8.1 at admission -Hgb 8.6 stable -hemoglobin baseline may be 11 however there has been a trend of hemoglobin decreasing. -MCV 86 -no obvious active bleeding, patient denies melena, hematachezia. She reports being up-to-date on colonoscopy. 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 creatinine 1.43, she is at baseline (1.4- 1.7) GFR 38 plan: -Pt has contrast CT will monitor Cr as this may worsen within the next 48-72hr -chronic kidney disease is at baseline. Will continue to monitor serum creatinine -will avoid nephrotoxic agents and renal dose medications -monitor I&O (4) Diabetes mellitus Current Visit: Yes Status: Acute Assessment and Plan: history of diabetes on insulin pump hemoglobin A1C 7 glucose stable -The patient's insulin pump malfunction 7 continue with sliding scale insulin. The patient reported that her is bringing her supplies for her insulin pump. Will instruct the nurse to stop the sliding scale insulin when her brings the new insulin pump supplies. -Accu check -diabetic diet (5) Hyponatremia Current Visit: Yes Status: Acute Assessment and Plan: hyponatremia sodium 124. looks to be chronically hyponatremia with sodium ranging from 122-133 over this past year -appears to be hypervolemic hyponatremia -may be secondary to new congestive heart failure, medications such as lamictal, polydipsia -Na 134 , yesterday 128 improved -serum osmolality 272 -urine osm 231, urine sodium 34.3 plan: -sodium improving with current therapy -order legionella in setting of hyponatremia and pneumonia -fluid restriction -continue diuresis with Lasix -will continue to monitor sodium (6) Chronic cough Current Visit: Yes Status: Acute Assessment and Plan: chronic cough for 4 months etiology may be secondary to new congestive heart failure. Patient is on medication for Gerd. No infectious process on chest x-ray. history of smoking but no diagnosis of COPD. Chest x-ray was negative for infectious process. EGD was normal speech evaluation recommend current diet, no dysfunction -May be secondary to pneumonia as the patient reports that her cough has improved since starting antibiotics. Continue to monitor -duonebs PRN -rest of plan as above (7) Hypothyroidism Current Visit: Yes Status: Acute Assessment and Plan: history of known hypothyroidism -TSH 8.062 elevated -patient stated that her PCP has been titrating her medication. Instructed her to f/u with PCP (8) Hypertension Current Visit: Yes Status: Acute Assessment and Plan: history of known hypertension blood pressure stable -continue home amlodipine, Toprol, losartan (9) DVT prophylaxis Current Visit: Yes Status: Acute Assessment and Plan: SCD. no anticoagulation due to anemia - Time Spent with Patient Total time spent is greater than 50% in coordination of care (as documented) at patient's floor/unit and/or counseling patient: Internal Medicine: Result - Labs CBC & Chem 7: 07/27/18 05:09 07/27/18 05:09 Labs: Short CBC 07/27/18 Range/Units 05:09 WBC 6.7 (4.3-11.1) K/mcL Hgb 8.6 L (11.5-15.4) g/dL Hct 27.1 L (35.3-44.9) % Plt Count 369 (140-400) K/mcL Neutrophils # 4.0 (1.6-8.9) K/mcL BMP 07/27/18 05:09 Sodium 134 L Potassium 4.0 Chloride 100 Carbon Dioxide 25 BUN 18 Creatinine 1.43 H Glucose 177 H Calcium 8.7 - ABG Interpretation ABG results: PT/INR, D-dimer D-Dimer 1346 ng/mLFEU (0-500) H 07/25/18 18:27 - Impressions Impressions Echocardiogram 07/25/18 17:07 Impressions: Technically sub-optimal due to poor echocardiographic windows. LVEF 60%. Normal LV wall thickness and function. Mildly dilated left ventricle. Mild left ventricular diastolic dysfunction. Right ventricle was not well visualized. Grossly, it is mildly dilated with normal function. Unable to estimate RVSP due to lack of TR jet. No significant valvular dysfunction. Left Ventricular Wall Motion: Rest Echo Findings All wall segments showed normal motion. Findings: Study Quality * Technically sub-optimal due to poor echocardiographic windows. ECG Findings * Normal sinus rhythm. Left Ventricle * LVEF 60%. * Normal LV wall thickness and function. * Mildly dilated left ventricle. * Mild left ventricular diastolic dysfunction. Right Ventricle * Right ventricle was not well visualized. Grossly, it is mildly dilated with normal function. Left Atrium * Mildly dilated left atrium. Right Atrium * Mildly dilated right atrium. Aortic Valve * Aortic valve not well visualized. * No aortic stenosis. * No aortic regurgitation. Mitral Valve * Normal mitral valve structure and function. * No mitral regurgitation. * No mitral stenosis. Tricuspid Valve * Normal tricuspid valve structure and function. * No tricuspid regurgitation. * Unable to estimate RVSP due to lack of TR jet. Pulmonic Valve * Pulmonic valve not well visualized. * No pulmonic regurgitation. Aorta * Normally sized aortic root. Pericardium * The pericardium appears normal. IVC * The IVC is not well evaluated. Pulmonary Artery * Pulmonary artery not well visualized. Chest CTA 07/26/18 12:00 IMPRESSION: 1. No evidence of pulmonary embolism. 2. Patchy airspace opacities in the right middle and lower lobes, concerning for pneumonia. 3. Small bilateral pleural effusions, right greater than left. 4. Coronary atherosclerosis. D/ / 07/26/2018 13:38:14 Anshul Pantoja MD / prashanth Interpreting Provider: Anshul Pantoja MD - VTE Documentation of Mechanical Device: Intermittent pneumatic compression device Consult Discharge Plan - Plan Referrals: Sirena Guy MD [Primary Care Provider] - 08/05/18 9:30 am (Please follow up as schedule...) <Ayah Jerez - Last Filed: 07/27/18 14:16> Hospitalist Progress Note - Encounter Date of Encounter: 07/27/18 - Exam Vitals: Temp Pulse Resp BP Pulse Ox 98.3 F 92 19 150/81 95 07/27/18 11:38 07/27/18 11:38 07/27/18 11:38 07/27/18 11:38 07/27/18 11:38 - Assessment and Plan (1) Dyspnea Current Visit: Yes Status: Acute (2) Anemia Current Visit: Yes Status: Acute (3) Chronic kidney disease (CKD) Current Visit: Yes Status: Acute (4) Diabetes mellitus Current Visit: Yes Status: Acute (5) Hyponatremia Current Visit: Yes Status: Acute (6) Chronic cough Current Visit: Yes Status: Acute (7) Hypothyroidism Current Visit: Yes Status: Acute (8) Hypertension Current Visit: Yes Status: Acute (9) DVT prophylaxis Current Visit: Yes Status: Acute - Time Spent with Patient Total time spent is greater than 50% in coordination of care (as documented) at patient's floor/unit and/or counseling patient: Internal Medicine: Result - Labs CBC & Chem 7: 07/27/18 05:09 07/27/18 05:09 Labs: Short CBC 07/27/18 Range/Units 05:09 WBC 6.7 (4.3-11.1) K/mcL Hgb 8.6 L (11.5-15.4) g/dL Hct 27.1 L (35.3-44.9) % Plt Count 369 (140-400) K/mcL Neutrophils # 4.0 (1.6-8.9) K/mcL BMP 07/27/18 05:09 Sodium 134 L Potassium 4.0 Chloride 100 Carbon Dioxide 25 BUN 18 Creatinine 1.43 H Glucose 177 H Calcium 8.7 - ABG Interpretation ABG results: PT/INR, D-dimer D-Dimer 1346 ng/mLFEU (0-500) H 07/25/18 18:27 - Attending Attestation I examined this patient and my medical decision-making was reviewed with the Resident Physician Dr Ellis. I agree with the documented findings, disposition and treatment plan as described except to the extent set forth below. Ms Luther has pmhx arthritis, diabetes, glaucoma, hyperlipidemia, hypertension,ckd, thyroid disease She is admitted for dyspnea on exertion and le edema. awake, daytime cough significantly improved, cont nighttime cough, no wheezing, + orhtpnea, le edema improving, no fevers, chills gen- alert, awake,appears stated age cv- reg rate and rhythm, normal s1,s2, no murmurs appreciated, trace pitting bl le edema lungs-ctabl no wheezing, crackles rhonchi appreciated, normal resp effort on ra neuro- AAOx3,cn intact, no focal deficits Dyspnea on Exertion/LE edema Acute Diastolic CHF exacerbation -echo with mild Diastolic dysfunction -cont home statin, bb, arb, IV lasix Hypervolemic Hyponatremia, improving at appropriate rate On chart review this appears chronic in nature with baseline since May being anywhere from 121-128 -slow improvement with diuresis Anemia, on chart review it appears she has been anemia in past but baseline is unknown, she notes months of decreasing hgb-cannot determine if acute, acute on chronic- egd 07/25 normal,normal cscope 2 years ago per pt, fobt in ER is negative, ua neg, at this time scds only and cont to monitor, transfuse less than hgb 7, + DANELLE- began ferrous sulfate Chronic dry hacking cough 2/ Pna, organism uk, acquired in community - rocpehin + gennaroro further diagnoses and treatment as documented by resident <Ciarra Ellis - Last Filed: 07/27/18 13:10> (1) Dyspnea Qualifiers: Dyspnea type: dyspnea on exertion Qualified Code(s): R06.09 - Other forms of dyspnea (2) Anemia Qualifiers: Anemia type: unspecified type Qualified Code(s): D64.9 - Anemia, unspecified (3) Chronic kidney disease (CKD) Qualifiers: Chronic kidney disease stage: stage 3 (moderate) Qualified Code(s): N18.3 - Chronic kidney disease, stage 3 (moderate) (4) Diabetes mellitus Qualifiers: Qualified Code(s): E11.9 - Type 2 diabetes mellitus without complications (7) Hypothyroidism Qualifiers: Qualified Code(s): E03.9 - Hypothyroidism, unspecified (8) Hypertension Qualifiers: Qualified Code(s): I10 - Essential (primary) hypertension <Ayah Jerez - Last Filed: 07/27/18 14:16> (1) Dyspnea Qualifiers: Dyspnea type: dyspnea on exertion Qualified Code(s): R06.09 - Other forms of dyspnea (2) Anemia Qualifiers: Anemia type: unspecified type Qualified Code(s): D64.9 - Anemia, unspecified (3) Chronic kidney disease (CKD) Qualifiers: Chronic kidney disease stage: stage 3 (moderate) Qualified Code(s): N18.3 - Chronic kidney disease, stage 3 (moderate) (4) Diabetes mellitus Qualifiers: Qualified Code(s): E11.9 - Type 2 diabetes mellitus without complications (7) Hypothyroidism Qualifiers: Qualified Code(s): E03.9 - Hypothyroidism, unspecified (8) Hypertension Qualifiers: Qualified Code(s): I10 - Essential (primary) hypertension
[2018-07-28] MEDS: Acetaminophen 325 MG TABLET PO PRN (01:57)
[2018-07-28 03:15] LABS: Basophils # 0.1 K/mcL (0.0-0.2); Basophils % 0.7 %; Eosinophils # 0.5 K/mcL (0.0-0.6); Eosinophils % 7.2 %; Hematocrit 25.4 % (35.3-44.9); Immature Granulocytes % 0.3 % (0-4); Lymphocytes # 1.2 K/mcL (0.6-4.6); Lymphocytes % 16.6 %; Mean Corpuscular HGB Conc 31.5 g/dL (31.6-35.5); Mean Corpuscular Hemoglobin 27.9 pg (28.0-33.3); Mean Corpuscular Volume 88.5 fL (83.0-100.0); Mean Platelet Volume 8.5 fL (9.4-12.4); Monocytes # 1.1 K/mcL (0.0-1.3); Neutrophils # 4.1 K/mcL (1.6-8.9); Platelet Count 353 K/mcL (140-400); Red Blood Count 2.87 M/mcL (3.82-4.97); Segmented Neutrophils % 59.2 %
[2018-07-28 03:25] LABS: Calcium 8.5 mg/dL (8.6-10.3); Potassium 4.2 mEq/L (3.5-5.1)
[2018-07-28] MEDS: Ipratropium/Albuterol Neb 3 ML IH SCH ×2 (03:43→11:03)
[2018-07-28] MEDS: Furosemide 40 MG/4 ML VIAL IVP SCH (07:49)
[2018-07-28] MEDS: lamoTRIgine 100 MG TABLET PO SCH (07:49)
[2018-07-28] MEDS: Venlafaxine XR (24 HR) 150 MG CAP.ER.24H PO SCH (07:50)
[2018-07-28] MEDS: amLODIPine 5 MG TABLET PO SCH (07:50)
[2018-07-28] MEDS: Azithromycin 250 MG TABLET PO SCH (07:50)
[2018-07-28] MEDS: ARIPiprazole 5 MG TABLET PO SCH (07:50)
[2018-07-28] MEDS: cefTRIAXone 1,000 MG in Water for inj. (sterile) 20 ML 10 ML IVP SCH (07:50)
[2018-07-28] MEDS: Metoprolol XL (24 HR) Succ 50 MG TAB.ER.24H PO SCH (07:50)
[2018-07-28] MEDS: Insulin LISPRO 300 UNITS/3 ML VIAL SQ SCH ×2 (07:52→12:18)
--- NOTE | 2018-07-28 09:31 | Discharge Summary ---
<Ciarra Ellis - Last Filed: 07/28/18 12:15> - NOTES TO OUTPATIENT PROVIDER Notes to Outpatient Provider: - Admitted for dyspnea and cough for 4 months. CTA ruled out PE. Pneumonia was demonstrated the right middle and lower lobes. Small bilateral pleural effusion. Patient was treated for pneumonia with Julian ephin and azithromycin but was discharged with Levaquin to complete 7 day course of antibiotics. -She was noted to be hyponatremia And anemic which were both stable and at baseline. Hyponatremia improved with Lasix. She stated this is chronic to her and she takes vitamin B12 and folate. She was noted to be iron deficient so she will be discharged with ferrous sulfate supplementation. -Her TSH was noted to be elevated at 8.062. She will need levothyroxine adjustments. -Her speedboat operator Dr. Mantilla at [facility] was concerned she has CHF. TTE demonstrated LVEF 60%, mild diastolic dysfunction, no valvular dysfunction. -She needs to follow up with her speedboat operator Orders not resulted at time of discharge: Pending orders 07/25/18 14:17 ECG 12 lead ECG [ECG] Stat 07/26/18 06:00 ECG 12 lead ECG [ECG] AM 0600 07/27/18 13:09 Legionella Antigen [RM] Routine Date of Encounter: 07/28/18 Time of Encounter: 09:15 - Discharge Diagnosis (1) Dyspnea Priority: Primary Status: Acute Qualifiers: Dyspnea type: dyspnea on exertion Qualified Code(s): R06.09 - Other forms of dyspnea (2) Anemia Priority: Secondary Status: Acute Qualifiers: Anemia type: unspecified type Qualified Code(s): D64.9 - Anemia, unspecified (3) Chronic kidney disease (CKD) Priority: Secondary Status: Acute Qualifiers: Chronic kidney disease stage: stage 3 (moderate) Qualified Code(s): N18.3 - Chronic kidney disease, stage 3 (moderate) (4) Diabetes mellitus Priority: Secondary Status: Acute Qualifiers: Qualified Code(s): E11.9 - Type 2 diabetes mellitus without complications (5) Hyponatremia Priority: Secondary Status: Acute (6) Chronic cough Priority: Secondary Status: Acute (7) Hypothyroidism Priority: Secondary Status: Acute Qualifiers: Qualified Code(s): E03.9 - Hypothyroidism, unspecified (8) Hypertension Priority: Secondary Status: Acute Qualifiers: Qualified Code(s): I10 - Essential (primary) hypertension (9) DVT prophylaxis Priority: Secondary Status: Acute Hospital course: Ms. Luther is a 67 year old female with past medical history of arthritis, diabetes, glaucoma, hyperlipidemia, hypertension, chronic kidney disease stage III, thyroid disease who presented to [facility] in planning of dyspnea and cough for 4 months. Admits orthopnea, paroxysmal nocturnal dyspnea, dyspnea on exertion. Denies fever, productive cough. She was told by her speedboat operator Dr. Mantilla that he was concerned she had CHF. Chest x-ray demonstrating vascular congestion suggestive of congestive heart failure. BNP was elevated 358. Troponin's were negative. An echocardiogram was ordered demonstrated preserved ejection fraction, LVEF 60%, mild diastolic dysfunction, no valvular dysfunction. A CTA demonstrated no PE, patchy opacities in right middle and lower lobes concerning for pneumonia, and small b/l pleural effusion with right greater than left. She was then started on antibiotics to treat the pneumonia such as azithromycin and Rocephin. The patient started to improve and reported that she was having decreased cough which was significant for her as she used to have cough continuous throughout the day. She also had increased shortness of breath. Respiratory infectious panel and influenza were negative. She was found to be anemic and hyponatremia which she reported is chronic for her. She follows with Dr. Hartley of nephrology for her kidney disease. She also takes folate in vitamin B12 her hair anemia. Iron panel demonstrated iron deficiency. She was started on ferrous sulfate supplementation. A TSH was checked and it be elevated. She stated that her family physician has been titrating her levothyroxine to the appropriate dose. She was instructed to follow-up with her PCP for continuing titration of the levothyroxine. She was instructed to follow up with her aerodynamics engineer Dr. Hartley to continue monitoring her low-sodium and anemia. She was instructed to follow up with her speedboat operator upon discharge. She started to follow-up with her PCP to make sure she was improving with the antibiotic treatment of pneumonia. Upon discharge she was afebrile, on room air, in no acute distress. She denied fever, chills, shortness of breath, chest pain, nausea. She was alert and oriented times 3 and stated a clear understanding of the treatment plan. Discharge discussed with: patient, nurse - Time Spent with Patient Total time spent providing and/or coordinating discharge services: Greater than 30 minutes - Discharge Medications Prescriptions: Ferrous Sulfate 325 mg PO DAILY@0800 #30 tablet levoFLOXacin [Levaquin] 750 mg PO DAILY #4 tablet Home Medications: ARIPiprazole [Abilify] 5 mg PO DAILY 09/17/17 [History] Folic Acid 1 mg PO DAILY 09/17/17 [History] Furosemide [Lasix] 40 mg PO BID 09/17/17 [History] Lovastatin 10 mg PO DAILY 09/17/17 [History] Mirtazapine [Remeron] 15 mg PO HS 09/17/17 [History] Multivit-Min/FA/Lycopen/Lutein [A Thru Z Select Multivit Tab] 1 tab PO DAILY 09/17/17 [History] Omeprazole [PriLOSEC] 20 mg PO DAILY 09/17/17 [History] Timolol [Betimol] 1 drop RIGHT EYE QAM 09/17/17 [History] Venlafaxine HCl [Venlafaxine HCl ER] 150 mg PO DAILY 09/17/17 [History] amLODIPine [Norvasc] 10 mg PO DAILY 09/17/17 [History] lamoTRIgine [Lamictal] 200 mg PO DAILY 09/17/17 [History] Cyanocobalamin (Vitamin B-12) [Vitamin B12] 1,000 mcg PO DAILY 11/09/17 [History] Losartan Potassium [Cozaar] 100 mg PO DAILY 11/09/17 [History] Metoprolol Succinate [Toprol Xl] 50 mg PO DAILY 11/09/17 [History] Subcutaneous Insulin Pump [T:Slim] 1 each MC CONT 11/09/17 [History] Tacrolimus [Protopic] 1 appl TP DAILY PRN 11/09/17 [History] Triamcinolone Acetonide 1 appl TP BID PRN 11/09/17 [History] Cholecalciferol (D-3) [Vitamin D] 2,000 unit PO BID 07/25/18 [History] Clobetasol Propionate [Clobex] 1 applic TP DAILY PRN 07/25/18 [History] Insulin LISPRO [Admelog] 0 units SQ AD 07/25/18 [History] Levothyroxine Sodium [Synthroid] 200 mcg PO QAM 07/25/18 [History] Mupirocin [Bactroban Oint] 1 applic TP BID PRN 07/25/18 [History] Paricalcitol [Zemplar] 1 mcg PO DAILY 07/25/18 [History] Ropinirole HCl [Requip] 1.5 mg PO HS 07/25/18 [History] Zolpidem Tartrate 5 mg PO HS 07/25/18 [History] Ferrous Sulfate 325 mg PO DAILY@0800 #30 tablet 07/28/18 [Rx] levoFLOXacin [Levaquin] 750 mg PO DAILY #4 tablet 07/28/18 [Rx] Allergies/Adverse Reactions: Allergy/AdvReac Type Severity Reaction Status Date / Time Antifungal - Imidazole Allergy skin Verified 11/25/17 07:32 peeling clonazepam [From Klonopin] Allergy rash,nausea Verified 11/25/17 07:32 Sulfa (Sulfonamide Allergy See Verified 11/25/17 07:32 Antibiotics) Comments Date of admission: 07/28/18 07:13 Primary care physician: Sirena Guy MD Discharging clinician: Ayah Jerez Anticipated date of discharge: 07/28/18 - Constitutional Vitals: Temp Pulse Resp BP Pulse Ox 98.0 F 81 18 139/78 100 07/28/18 07:41 07/28/18 07:41 07/28/18 07:41 07/28/18 07:41 07/28/18 07:41 Exam: Gen.: Vitals noted. No acute distress. AAOx3 HEENT: oropharynx clear, Normocephalic, atraumatic Neck: Supple. No adenopathy. Cardiac: RRR, no murmur, +S1/S2, trace BLE edema Pulmonary: rales bilaterally bases, no wheezes or rhonchi, equal chest expansion Abdomen: soft, nontender, Bowel sounds noted, no guarding Extremities: nontender calf, no cyanosis or clubbing Neuro: A&Ox3, moves all extremities, no focal deficits Psych: Appropriate mood and behavior - Patient Status Disposition: Home, Self-Care Condition: Fair Functional capacity at discharge: independent ambulation Overall status at discharge: patient is progressing back to baseline - Discharge Instructions Follow Up With: Sirena Guy MD [Primary Care Provider] - 08/05/18 9:30 am (Please follow up as schedule...) Jayme Santana MD [Non-Partnered Physician] - Additional Instructions: Finish your antibiotics to completion. Continue taking ferrous sulfate for your anemia Follow-up with your aerodynamics engineer Dr. Hartley for your low-sodium and anemia Return to the hospital should you develop worsening fevers, chills, shortness of breath. Follow-up with your family physician in about a week to be sure that you are improving. Also happy family physician titrate your levothyroxine. Follow-up with her speedboat operator in about a week. - Diet and Activity Activity: resume usual activities as tolerated Diet: advance to your usual diet - VTE Documentation of Mechanical Device: Intermittent pneumatic compression device <Ayah Jerez - Last Filed: 07/28/18 14:05> Orders not resulted at time of discharge: Pending orders 07/25/18 14:17 ECG 12 lead ECG [ECG] Stat 07/26/18 06:00 ECG 12 lead ECG [ECG] AM 0600 07/27/18 13:09 Legionella Antigen [RM] Routine Date of Encounter: 07/28/18 - Discharge Diagnosis (1) Dyspnea Status: Acute Qualifiers: Dyspnea type: dyspnea on exertion Qualified Code(s): R06.09 - Other forms of dyspnea (2) Anemia Status: Acute Qualifiers: Anemia type: unspecified type Qualified Code(s): D64.9 - Anemia, unspecified (3) Chronic kidney disease (CKD) Status: Acute Qualifiers: Chronic kidney disease stage: stage 3 (moderate) Qualified Code(s): N18.3 - Chronic kidney disease, stage 3 (moderate) (4) Diabetes mellitus Status: Acute Qualifiers: Qualified Code(s): E11.9 - Type 2 diabetes mellitus without complications (5) Hyponatremia Status: Acute (6) Chronic cough Status: Acute (7) Hypothyroidism Status: Acute Qualifiers: Qualified Code(s): E03.9 - Hypothyroidism, unspecified (8) Hypertension Status: Acute Qualifiers: Qualified Code(s): I10 - Essential (primary) hypertension (9) DVT prophylaxis Status: Acute Hospital course: Ms. Luther is a 67 year old female - Time Spent with Patient Total time spent providing and/or coordinating discharge services: Greater than 30 minutes (35) Date of admission: 07/28/18 07:13 Primary care physician: Sirena Guy MD - Constitutional Vitals: Temp Pulse Resp BP Pulse Ox 98.1 F 72 18 112/70 95 07/28/18 11:47 07/28/18 11:47 07/28/18 11:47 07/28/18 11:47 07/28/18 11:47 - Attending Attestation I examined this patient and my medical decision-making was reviewed with the Resident Physician Dr Ellis. I agree with the documented findings, disposition and treatment plan as described except to the extent set forth below. Ms Luther has pmhx arthritis, diabetes, glaucoma, hyperlipidemia, hypertension,ckd, thyroid disease She was admitted for dyspnea on exertion and le edema. She has diasotlic chf and pna. Chronically low sodium and anemai stable. awake, cough significantly improved, orthopnea improved, le edema cont to improve. ambulated white multiple times and good improvement from prior to admit, not requiring oxygen. discussed dc plan and answered all questions, stressed importance of fu with cards, nephro and pcp gen- alert, awake,appears stated age cv- reg rate and rhythm, normal s1,s2, no murmurs appreciated,no pitting bl le edema lungs-ctabl no wheezing, crackles rhonchi appreciated, normal resp effort on ra neuro- AAOx3,cn intact, no focal deficits Dyspnea on Exertion/LE edema Acute Diastolic CHF exacerbation -echo with mild Diastolic dysfunction -cont home statin, bb, arb, may resume BID lasix on dc, low sodium diet, fu with Dr Santana Hypervolemic Hyponatremia, improving at appropriate rate wth iv diuresis, without cognitive deficit On chart review this appears chronic in nature with baseline since December being anywhere from 121-128 -fu withnephro (Dr Hartley) Anemia, on chart review it appears she has been anemia in past but baseline is unknown, she notes months of decreasing hgb-cannot determine if acute, acute on chronic- egd 07/25 normal,normal cscope 2 years ago per pt, fobt in ER is negative, ua neg, + DANELLE- began ferrous sulfate -fu with pcp and nephro Chronic dry hacking cough 2/2 Pna, organism uk, acquired in community - rocpehin + azithro inpt, complete oral levaquin and fu with pcp further diagnoses and treatment as documented by resident
[2018-07-28 11:48] VITALS: BP 112/70
== END 2018-07-28 13:00 | disposition home or self-care (01) | DRG 194 ==
LOC: 2ANU 13:48 → EMEROOARM 13:48 → SUATTDRO 16:13 → 2ANU 16:34
PROVIDERS: ADMIT Internal Medicine Cardiovascular Disease; ATTEND Internal Medicine

== ENCOUNTER 2019-10-17 18:13 | Inpatient (IN) ==
[2019-10-17 19:20] LABS: Basophils # 0.1 K/mcL (0.0-0.2); Basophils % 0.8 %; Eosinophils # 0.2 K/mcL (0.0-0.6); Eosinophils % 1.4 %; Hematocrit 29.1 % (35.3-44.9); Hemoglobin 10.5 g/dL (11.5-15.4); Immature Granulocytes % 0.3 % (0-4); Lymphocytes # 3.5 K/mcL (0.6-4.6); Mean Corpuscular HGB Conc 36.1 g/dL (31.6-35.5); Mean Corpuscular Hemoglobin 37.5 pg (28.0-33.3); Mean Corpuscular Volume 103.9 fL (83.0-100.0); Mean Platelet Volume 10.2 fL (9.4-12.4); Monocytes # 1.3 K/mcL (0.0-1.3); Monocytes % 10.6 %; Neutrophils # 6.7 K/mcL (1.6-8.9); Nucleated Red Blood Cells 0.2 /100 WBC (0); Platelet Count 224 K/mcL (140-400); Red Cell Distribution Width 14.7 % (11.5-14.5); Segmented Neutrophils % 56.9 %; White Blood Count 11.8 K/mcL (4.3-11.1)
[2019-10-17 19:52] LABS: Albumin 2.6 g/dL (3.5-5.7); Albumin/Globulin Ratio 0.9 (1.1-2.2); Bilirubin,Total 1.4 mg/dL (0.3-1.0); Calcium 8.3 mg/dL (8.6-10.3); Globulin 2.8 g/dL (2.4-3.5); Potassium 2.7 mEq/L (3.5-5.1); Total Protein 5.4 g/dL (6.4-8.9); Troponin I 0.03 ng/mL (< 0.04)
[2019-10-17] MEDS ORDERED: Potassium Chloride Elixir 20 MEQ/15 ML UDC PO ONE ×2 (19:56→23:35)
[2019-10-17] MEDS ORDERED: Aspirin 325 MG TABLET PO ONE (20:31)
[2019-10-17] MEDS ORDERED: Naloxone 0.4 MG/ML INJ IVP PRN (23:43)
[2019-10-18 00:18] LABS: ABG Base Excess -2 mEq/L (-2 to 3); ABG HCO3 22 mEq/L (21-27); ABG Oxygen Saturation 93 % (95-98); ABG PCO2 31 mmHg (35-45); ABG PH 7.45 pH Units (7.32-7.45); ABG PO2 63 mmHg (85-104); ABG TCO2 23 mEq/L (20-26)
[2019-10-18] MEDS ORDERED: Ondansetron ODT 4 MG TAB.RAPDIS SL PRN (00:20)
[2019-10-18] MEDS ORDERED: hydrOXYzine pamoate 25 MG CAPSULE PO PRN (00:20)
[2019-10-18] MEDS: lamoTRIgine 100 MG TABLET PO SCH ×2 (01:14→20:31)
[2019-10-18] MEDS: rOPINIRole 1 MG TABLET PO SCH ×2 (01:14→20:31)
[2019-10-18] MEDS: Vancomycin Oral Soln 125 MG/2.5 ML UDC PO SCH ×5 (03:06→20:30)
[2019-10-18 03:39] LABS: Basophils # 0.1 K/mcL (0.0-0.2); Basophils % 0.8 %; Eosinophils # 0.2 K/mcL (0.0-0.6); Eosinophils % 1.7 %; Hemoglobin 9.2 g/dL (11.5-15.4); Immature Granulocytes % 0.2 % (0-4); Immature Reticulocyte % 29.6 % (11.0-38.0); Lymphocytes # 3.9 K/mcL (0.6-4.6); Lymphocytes % 39.2 %; Mean Corpuscular HGB Conc 35.4 g/dL (31.6-35.5); Mean Corpuscular Hemoglobin 36.8 pg (28.0-33.3); Mean Platelet Volume 10.1 fL (9.4-12.4); Monocytes # 1.3 K/mcL (0.0-1.3); Monocytes % 12.9 %; Neutrophils # 4.5 K/mcL (1.6-8.9); Nucleated Red Blood Cells 0.2 /100 WBC (0); Platelet Count 190 K/mcL (140-400); Retculocyte # 0.07 M/mcL (0.05-0.10); Reticulocyte % 2.6 % (1.6-2.8); Segmented Neutrophils % 45.2 %
[2019-10-18 03:48] LABS: INR 1.3; Prothrombin Time 14.4 Seconds (9.4-12.1)
[2019-10-18 03:57] LABS: % Iron Saturation 93 % (15-50); Alanine Aminotransferase 19 Units/L (7-52); Albumin 2.2 g/dL (3.5-5.7); Albumin/Globulin Ratio 0.9 (1.1-2.2); Alkaline Phosphatase 306 Units/L (34-104); Aspartate Amino Transferase 50 Units/L (13-39); BUN/Creatinine Ratio 7 (6-26); Bilirubin,Total 1.4 mg/dL (0.3-1.0); Blood Urea Nitrogen 23 mg/dL (8-23); Calcium 7.8 mg/dL (8.6-10.3); Carbon Dioxide 21 mEq/L (23-29); Chloride 101 mEq/L (98-107); Creatine Kinase 38 Units/L (30-223); Gamma Glutamyl Transpeptidase 825 Units/L (7-64); Globulin 2.4 g/dL (2.4-3.5); Glucose 75 mg/dL (70-105); Iron 109 mcg/dL (50-170); Magnesium 1.4 mg/dL (1.6-2.6); Osmolality,Calculated 282 (280-300); Phosphorous 3.1 mg/dL (2.7-4.5); Potassium 3.1 mEq/L (3.5-5.1); Sodium 135 mEq/L (136-145); Total Protein 4.6 g/dL (6.4-8.9); Transferrin 84 mg/dL (203-362); eGFR For African Americans 16 (> 60); eGFR For Non-African Americans 13 (> 60)
[2019-10-18] MEDS: Acetaminophen 325 MG TABLET PO PRN (04:09)
[2019-10-18 04:12] LABS: Troponin I < 0.03 ng/mL (< 0.04)
[2019-10-18 04:30] LABS: Ferritin 362 ng/mL (10-120)
[2019-10-18] MEDS ORDERED: Potassium Chloride Elixir 20 MEQ/15 ML UDC PO ONE (06:22)
[2019-10-18 07:45] LABS: Bilirubin,Urine Negative (Negative); Blood,Urine Negative (Negative); Clarity,Urine Clear (Clear); Color,Urine Yellow (Yellow); Glucose,Urine (UA) Normal (Normal); Ketones,Urine Negative (Negative); Leukocyte Esterase,Urine Negative (Negative); Nitrite,Urine Negative (Negative); Protein,Urine Negative (Neg-Trace); Specific Gravity,Urine 1.011 (1.010-1.025); Urobilinogen,Urine Normal (Normal)
[2019-10-18 08:01] LABS: Sodium, Urine 13.6 mEq/L
[2019-10-18] MEDS: Gabapentin 100 MG CAPSULE PO SCH ×3 (09:33→20:31)
[2019-10-18] MEDS: Folic Acid 1 MG TABLET PO SCH (09:33)
[2019-10-18] MEDS: Metoprolol XL (24 HR) Succ 50 MG TAB.ER.24H PO SCH (09:33)
[2019-10-18] MEDS: Albumin 25% 25gram/100mL 25 GM/100 ML IV.SOLN IVC SCH ×4 (16:59→22:53)
[2019-10-18] MEDS: *HR* Heparin 5,000 UNIT/ML VIAL SQ SCH (17:00)
[2019-10-19 02:57] LABS: Basophils # 0.1 K/mcL (0.0-0.2); Basophils % 0.9 %; Eosinophils # 0.1 K/mcL (0.0-0.6); Eosinophils % 2.2 %; Hematocrit 23.3 % (35.3-44.9); Hemoglobin 7.9 g/dL (11.5-15.4); Immature Granulocytes % 0.3 % (0-4); Lymphocytes # 2.4 K/mcL (0.6-4.6); Lymphocytes % 40.9 %; Mean Corpuscular HGB Conc 33.9 g/dL (31.6-35.5); Mean Corpuscular Hemoglobin 36.4 pg (28.0-33.3); Mean Corpuscular Volume 107.4 fL (83.0-100.0); Mean Platelet Volume 10.1 fL (9.4-12.4); Monocytes # 0.7 K/mcL (0.0-1.3); Neutrophils # 2.6 K/mcL (1.6-8.9); Platelet Count 160 K/mcL (140-400); Red Blood Count 2.17 M/mcL (3.82-4.97); Red Cell Distribution Width 15.4 % (11.5-14.5); Segmented Neutrophils % 43.7 %; White Blood Count 5.8 K/mcL (4.3-11.1)
[2019-10-19 03:18] LABS: Calcium 8.6 mg/dL (8.6-10.3); Potassium 3.7 mEq/L (3.5-5.1)
[2019-10-19] MEDS: *HR* Heparin 5,000 UNIT/ML VIAL SQ SCH ×2 (05:46→16:44)
[2019-10-19] MEDS: Metoprolol XL (24 HR) Succ 50 MG TAB.ER.24H PO SCH (07:47)
[2019-10-19] MEDS: Folic Acid 1 MG TABLET PO SCH (07:47)
[2019-10-19] MEDS: Vancomycin Oral Soln 125 MG/2.5 ML UDC PO SCH ×4 (07:47→20:45)
[2019-10-19] MEDS: Gabapentin 100 MG CAPSULE PO SCH ×3 (07:47→20:44)
[2019-10-19] MEDS: Furosemide 20 MG/2 ML VIAL IVP SCH (13:01)
[2019-10-19] MEDS: Albumin 25% 25gram/100mL 25 GM/100 ML IV.SOLN IVPB SCH (13:01)
[2019-10-19 13:43] LABS: Hepatitis B Surface Antigen Nonreactive (Nonreactive)
[2019-10-19 14:04] LABS: Hematocrit 24.5 % (35.3-44.9); Hemoglobin 8.5 g/dL (11.5-15.4)
[2019-10-19 14:11] LABS: Hepatitis C Virus Antibody Nonreactive (Nonreactive)
[2019-10-19 14:12] LABS: Hepatitis B Core IgM Nonreactive (Nonreactive)
[2019-10-19 14:13] LABS: Hepatitis A Antibody IgM Nonreactive (Nonreactive)
[2019-10-19] MEDS: Venlafaxine XR (24 HR) 75 MG CAP.ER.24H PO SCH (14:54)
[2019-10-19] MEDS: Venlafaxine XR (24 HR) 150 MG CAP.ER.24H PO SCH (14:54)
[2019-10-19] MEDS: ARIPiprazole 5 MG TABLET PO SCH (20:44)
[2019-10-19] MEDS: rOPINIRole 1 MG TABLET PO SCH (20:44)
[2019-10-19] MEDS: Lactobacillus 1 EACH CAP.SPRINK PO SCH (20:44)
[2019-10-19] MEDS: lamoTRIgine 100 MG TABLET PO SCH (20:44)
[2019-10-20] MEDS: Acetaminophen 325 MG TABLET PO PRN (03:27)
[2019-10-20 05:28] LABS: Basophils % 0.5 %; Eosinophils # 0.2 K/mcL (0.0-0.6); Eosinophils % 1.9 %; Hematocrit 23.5 % (35.3-44.9); Hemoglobin 7.9 g/dL (11.5-15.4); Immature Granulocytes % 0.5 % (0-4); Lymphocytes # 2.8 K/mcL (0.6-4.6); Mean Corpuscular HGB Conc 33.6 g/dL (31.6-35.5); Mean Corpuscular Hemoglobin 36.4 pg (28.0-33.3); Mean Corpuscular Volume 108.3 fL (83.0-100.0); Monocytes # 1.1 K/mcL (0.0-1.3); Monocytes % 12.3 %; Nucleated Red Blood Cells 0.2 /100 WBC (0); Platelet Count 170 K/mcL (140-400); Red Blood Count 2.17 M/mcL (3.82-4.97); Red Cell Distribution Width 15.7 % (11.5-14.5); Segmented Neutrophils % 52.8 %; White Blood Count 8.8 K/mcL (4.3-11.1)
[2019-10-20] MEDS: *HR* Heparin 5,000 UNIT/ML VIAL SQ SCH ×2 (05:35→16:54)
[2019-10-20 05:36] LABS: Neutrophils # 4.7 K/mcL (1.6-8.9)
[2019-10-20 06:12] LABS: Calcium 8.4 mg/dL (8.6-10.3); Potassium 4.4 mEq/L (3.5-5.1)
[2019-10-20] MEDS ORDERED: Perflutren Lipid Microsphere 1.3 ML in 0.9 % Sodium Chloride 8.7 ML IVP ONE (07:06)
[2019-10-20] MEDS: Lactobacillus 1 EACH CAP.SPRINK PO SCH ×2 (09:16→22:50)
[2019-10-20] MEDS: Venlafaxine XR (24 HR) 150 MG CAP.ER.24H PO SCH (09:17)
[2019-10-20] MEDS: Gabapentin 100 MG CAPSULE PO SCH (09:17)
[2019-10-20] MEDS: Metoprolol XL (24 HR) Succ 50 MG TAB.ER.24H PO SCH (09:17)
[2019-10-20] MEDS: Venlafaxine XR (24 HR) 75 MG CAP.ER.24H PO SCH (09:17)
[2019-10-20] MEDS: Multivit/Ca/Min/Fe/FA 1 TAB TABLET PO SCH (09:17)
[2019-10-20] MEDS: Folic Acid 1 MG TABLET PO SCH (09:17)
[2019-10-20] MEDS: Albumin 25% 25gram/100mL 25 GM/100 ML IV.SOLN IVPB SCH (09:19)
[2019-10-20] MEDS: Vancomycin Oral Soln 125 MG/2.5 ML UDC PO SCH ×4 (09:26→22:51)
[2019-10-20] MEDS: Furosemide 20 MG/2 ML VIAL IVP SCH (11:36)
[2019-10-20] MEDS ORDERED: D5% in Water 1,000 ML IVC PRN (15:00)
[2019-10-20] MEDS ORDERED: Dextrose Gel 15 GM/37.5 ML TUBE PO PRN ×2 (15:00)
[2019-10-20] MEDS ORDERED: *HR* Dextrose 50 % in Water (Syg) 50 ML SYRINGE IVP PRN (15:00)
[2019-10-20] MEDS: Insulin LISPRO 300 UNITS/3 ML VIAL SQ SCH ×2 (16:46→22:51)
[2019-10-20] MEDS ORDERED: Insulin DETEMIR 100 UNIT/ML X5UNITS SQ SCH (21:00)
[2019-10-20] MEDS: rOPINIRole 1 MG TABLET PO SCH (22:49)
[2019-10-20] MEDS: ARIPiprazole 5 MG TABLET PO SCH (22:50)
[2019-10-20] MEDS: lamoTRIgine 100 MG TABLET PO SCH (22:50)
[2019-10-21] MEDS: *HR* Heparin 5,000 UNIT/ML VIAL SQ SCH ×2 (06:18→16:44)
[2019-10-21 06:25] LABS: Basophils # 0.1 K/mcL (0.0-0.2); Basophils % 0.5 %; Eosinophils # 0.2 K/mcL (0.0-0.6); Eosinophils % 1.6 %; Hematocrit 22.6 % (35.3-44.9); Hemoglobin 7.7 g/dL (11.5-15.4); Immature Granulocytes % 0.4 % (0-4); Lymphocytes # 3.8 K/mcL (0.6-4.6); Mean Corpuscular HGB Conc 34.1 g/dL (31.6-35.5); Mean Corpuscular Hemoglobin 37.4 pg (28.0-33.3); Mean Corpuscular Volume 109.7 fL (83.0-100.0); Mean Platelet Volume 10.2 fL (9.4-12.4); Monocytes # 1.5 K/mcL (0.0-1.3); Monocytes % 13.7 %; Neutrophils # 5.5 K/mcL (1.6-8.9); Nucleated Red Blood Cells 0.2 /100 WBC (0); Platelet Count 143 K/mcL (140-400); Red Blood Count 2.06 M/mcL (3.82-4.97); Red Cell Distribution Width 15.9 % (11.5-14.5); Segmented Neutrophils % 49.8 %; White Blood Count 11.1 K/mcL (4.3-11.1)
[2019-10-21 06:34] LABS: Calcium 8.7 mg/dL (8.6-10.3); Potassium 4.5 mEq/L (3.5-5.1)
[2019-10-21 06:56] LABS: Folate 8.8 ng/mL (3.0-16.0)
[2019-10-21] MEDS: Metoprolol XL (24 HR) Succ 50 MG TAB.ER.24H PO SCH (08:02)
[2019-10-21] MEDS: Multivit/Ca/Min/Fe/FA 1 TAB TABLET PO SCH (08:02)
[2019-10-21] MEDS: Lactobacillus 1 EACH CAP.SPRINK PO SCH ×2 (08:02→20:43)
[2019-10-21] MEDS: Folic Acid 1 MG TABLET PO SCH (08:02)
[2019-10-21] MEDS: Venlafaxine XR (24 HR) 150 MG CAP.ER.24H PO SCH (08:02)
[2019-10-21] MEDS: Venlafaxine XR (24 HR) 75 MG CAP.ER.24H PO SCH (08:02)
[2019-10-21] MEDS: Vancomycin Oral Soln 125 MG/2.5 ML UDC PO SCH ×4 (08:03→20:43)
[2019-10-21] MEDS: Insulin LISPRO 300 UNITS/3 ML VIAL SQ SCH ×4 (08:03→20:43)
[2019-10-21] MEDS: Furosemide 20 MG/2 ML VIAL IVP SCH (08:03)
[2019-10-21] MEDS: Lactulose Oral Soln 20 GM/30 ML UDC PO SCH ×2 (14:13→20:43)
[2019-10-21] MEDS ORDERED: Albumin 25% 25gram/100mL 25 GM/100 ML IV.SOLN IVPB ONE (16:00)
[2019-10-21] MEDS ORDERED: Furosemide 20 MG/2 ML VIAL IVP ONE (17:00)
[2019-10-21] MEDS: rOPINIRole 1 MG TABLET PO SCH (20:42)
[2019-10-21] MEDS: ARIPiprazole 5 MG TABLET PO SCH (20:42)
[2019-10-21] MEDS: lamoTRIgine 100 MG TABLET PO SCH (20:42)
[2019-10-21] MEDS: Gabapentin 100 MG CAPSULE PO SCH (20:42)
[2019-10-22] MEDS: Acetaminophen 325 MG TABLET PO PRN (00:54)
[2019-10-22] MEDS ORDERED: Acetaminophen IV 1,000 MG/100 ML INFUS..BTL IVPB ONE (02:18)
[2019-10-22] MEDS ORDERED: *HR* LORazepam 2 MG/ML VIAL IVP PRN ×3 (05:15)
[2019-10-22] MEDS ORDERED: *HR* Promethazine 25 MG/ML VIAL IVP PRN (05:15)
[2019-10-22 05:56] LABS: Hematocrit 22.5 % (35.3-44.9); Hemoglobin 7.6 g/dL (11.5-15.4); Mean Corpuscular HGB Conc 33.8 g/dL (31.6-35.5); Mean Corpuscular Hemoglobin 37.4 pg (28.0-33.3); Mean Corpuscular Volume 110.8 fL (83.0-100.0); Mean Platelet Volume 10.7 fL (9.4-12.4); Platelet Count 164 K/mcL (140-400); Red Blood Count 2.03 M/mcL (3.82-4.97); Red Cell Distribution Width 16.7 % (11.5-14.5); White Blood Count 10.7 K/mcL (4.3-11.1)
[2019-10-22] MEDS ORDERED: *HR* LORazepam 1 MG TABLET PO ONE (05:58)
[2019-10-22] MEDS ORDERED: *HR* LORazepam Oral Conc 2 MG/ML SL ONE ×2 (05:59→06:00)
[2019-10-22 06:15] LABS: Iron 22 mcg/dL (50-170); Transferrin < 75 mg/dL (203-362)
[2019-10-22 06:16] LABS: Amylase 28 Units/L (29-103); BUN/Creatinine Ratio 7 (6-26); Blood Urea Nitrogen 21 mg/dL (8-23); Carbon Dioxide 22 mEq/L (23-29); Chloride 106 mEq/L (98-107); Ethanol < 10 mg/dL (Less than 10); Glucose 138 mg/dL (70-105); Lipase 31 Units/L (11-82); Osmolality,Calculated 291 (280-300); Potassium 4.6 mEq/L (3.5-5.1); Sodium 138 mEq/L (136-145); eGFR For African Americans 18 (> 60); eGFR For Non-African Americans 15 (> 60)
[2019-10-22] MEDS: *HR* Heparin 5,000 UNIT/ML VIAL SQ SCH ×2 (06:23→17:06)
[2019-10-22 06:40] LABS: Folate 9.4 ng/mL (3.0-16.0)
[2019-10-22] MEDS: Insulin LISPRO 300 UNITS/3 ML VIAL SQ SCH ×4 (08:23→21:39)
[2019-10-22] MEDS: Vancomycin Oral Soln 125 MG/2.5 ML UDC PO SCH ×4 (09:02→20:52)
[2019-10-22] MEDS: Lactobacillus 1 EACH CAP.SPRINK PO SCH ×2 (09:14→20:47)
[2019-10-22] MEDS: Folic Acid 1 MG TABLET PO SCH (09:14)
[2019-10-22] MEDS: Lactulose Oral Soln 20 GM/30 ML UDC PO SCH (09:14)
[2019-10-22] MEDS: Multivit/Ca/Min/Fe/FA 1 TAB TABLET PO SCH (09:15)
[2019-10-22] MEDS: Metoprolol XL (24 HR) Succ 50 MG TAB.ER.24H PO SCH (09:15)
[2019-10-22 10:41] LABS: ABG Base Excess 1 mEq/L (-2 to 3); ABG HCO3 25 mEq/L (21-27); ABG Oxygen Saturation 99 % (95-98); ABG PCO2 38 mmHg (35-45); ABG PH 7.43 pH Units (7.32-7.45); ABG PO2 127 mmHg (85-104); ABG TCO2 27 mEq/L (20-26)
[2019-10-22] MEDS ORDERED: Furosemide 40 MG/4 ML VIAL IVP ONE ×2 (10:59→11:00)
[2019-10-22] MEDS: Furosemide 20 MG/2 ML VIAL IVP SCH (11:02)
[2019-10-22] MEDS: Venlafaxine XR (24 HR) 75 MG CAP.ER.24H PO SCH (11:02)
[2019-10-22] MEDS: Venlafaxine XR (24 HR) 150 MG CAP.ER.24H PO SCH (11:02)
[2019-10-22] MEDS: Thiamine (B-1) 100 MG TABLET PO SCH (12:33)
[2019-10-22] MEDS ORDERED: *HR* LORazepam 2 MG/ML VIAL IVP ONE (17:28)
[2019-10-22] MEDS: lamoTRIgine 100 MG TABLET PO SCH (20:46)
[2019-10-22] MEDS: rOPINIRole 1 MG TABLET PO SCH (20:47)
[2019-10-22] MEDS: Gabapentin 100 MG CAPSULE PO SCH (20:48)
[2019-10-22] MEDS: ARIPiprazole 5 MG TABLET PO SCH (20:48)
[2019-10-23 03:55] LABS: Hematocrit 22.5 % (35.3-44.9); Hemoglobin 7.5 g/dL (11.5-15.4); Mean Corpuscular HGB Conc 33.3 g/dL (31.6-35.5); Mean Corpuscular Hemoglobin 36.9 pg (28.0-33.3); Mean Corpuscular Volume 110.8 fL (83.0-100.0); Mean Platelet Volume 10.1 fL (9.4-12.4); Platelet Count 169 K/mcL (140-400); Red Blood Count 2.03 M/mcL (3.82-4.97); Red Cell Distribution Width 16.7 % (11.5-14.5); White Blood Count 9.6 K/mcL (4.3-11.1)
[2019-10-23 04:06] LABS: Calcium 8.7 mg/dL (8.6-10.3); Potassium 4.3 mEq/L (3.5-5.1)
[2019-10-23] MEDS: *HR* Heparin 5,000 UNIT/ML VIAL SQ SCH ×2 (05:34→17:38)
[2019-10-23] MEDS: Insulin LISPRO 300 UNITS/3 ML VIAL SQ SCH ×4 (08:41→21:14)
[2019-10-23] MEDS: Multivit/Ca/Min/Fe/FA 1 TAB TABLET PO SCH (08:48)
[2019-10-23] MEDS: Venlafaxine XR (24 HR) 150 MG CAP.ER.24H PO SCH (08:48)
[2019-10-23] MEDS: Thiamine (B-1) 100 MG TABLET PO SCH (08:48)
[2019-10-23] MEDS: Metoprolol XL (24 HR) Succ 50 MG TAB.ER.24H PO SCH (08:48)
[2019-10-23] MEDS: Lactobacillus 1 EACH CAP.SPRINK PO SCH ×2 (08:48→21:13)
[2019-10-23] MEDS: Folic Acid 1 MG TABLET PO SCH (08:48)
[2019-10-23] MEDS: Vancomycin Oral Soln 125 MG/2.5 ML UDC PO SCH ×4 (09:05→21:12)
[2019-10-23] MEDS ORDERED: *HR* LORazepam 0.5 MG TABLET PO PRN (10:57)
[2019-10-23 11:58] LABS: Albumin 3.3 g/dL (3.5-5.7); Albumin/Globulin Ratio 1.4 (1.1-2.2); Bilirubin,Direct 1.1 mg/dL (0.0-0.2); Bilirubin,Indirect 0.9 mg/dL (0.0-1.0); Globulin 2.3 g/dL (2.4-3.5); Total Protein 5.6 g/dL (6.4-8.9)
[2019-10-23] MEDS ORDERED: SODIUM CHLORIDE/NAHCO3/KCL/PEG 4,000 ML SOLN.RECON PO ONE (17:00)
[2019-10-23] MEDS: lamoTRIgine 100 MG TABLET PO SCH (21:13)
[2019-10-23] MEDS: ARIPiprazole 5 MG TABLET PO SCH (21:13)
[2019-10-24] MEDS: *HR* Heparin 5,000 UNIT/ML VIAL SQ SCH ×2 (05:34→17:14)
[2019-10-24 06:13] LABS: Hematocrit 22.2 % (35.3-44.9); Hemoglobin 7.4 g/dL (11.5-15.4); Mean Corpuscular HGB Conc 33.3 g/dL (31.6-35.5); Mean Corpuscular Hemoglobin 37.2 pg (28.0-33.3); Mean Corpuscular Volume 111.6 fL (83.0-100.0); Mean Platelet Volume 10.2 fL (9.4-12.4); Platelet Count 192 K/mcL (140-400); Red Blood Count 1.99 M/mcL (3.82-4.97); Red Cell Distribution Width 16.6 % (11.5-14.5); White Blood Count 7.7 K/mcL (4.3-11.1)
[2019-10-24 06:28] LABS: BUN/Creatinine Ratio 8 (6-26); Blood Urea Nitrogen 21 mg/dL (8-23); Carbon Dioxide 26 mEq/L (23-29); Chloride 107 mEq/L (98-107); Glucose 86 mg/dL (70-105); Osmolality,Calculated 292 (280-300); Potassium 3.9 mEq/L (3.5-5.1); Sodium 140 mEq/L (136-145); eGFR For African Americans 23 (> 60); eGFR For Non-African Americans 19 (> 60)
[2019-10-24] MEDS: Insulin LISPRO 300 UNITS/3 ML VIAL SQ SCH ×4 (07:14→22:16)
[2019-10-24] MEDS ORDERED: Lidocaine -MPF 2% 2 ML VIAL ONE (10:33)
[2019-10-24] MEDS: Vancomycin Oral Soln 125 MG/2.5 ML UDC PO SCH ×4 (11:43→22:16)
[2019-10-24] MEDS: Thiamine (B-1) 100 MG TABLET PO SCH (11:43)
[2019-10-24] MEDS: Lactobacillus 1 EACH CAP.SPRINK PO SCH ×2 (11:44→22:15)
[2019-10-24] MEDS: Venlafaxine XR (24 HR) 150 MG CAP.ER.24H PO SCH (11:44)
[2019-10-24] MEDS: Folic Acid 1 MG TABLET PO SCH (11:44)
[2019-10-24] MEDS: Multivit/Ca/Min/Fe/FA 1 TAB TABLET PO SCH (11:44)
[2019-10-24] MEDS: Metoprolol XL (24 HR) Succ 50 MG TAB.ER.24H PO SCH (11:44)
[2019-10-24 16:54] LABS: Ferritin 343 ng/mL (10-120); Iron 24 mcg/dL (50-170); Transferrin < 75 mg/dL (203-362)
[2019-10-24] MEDS ORDERED: Ziprasidone 10 MG in Water for inj. (sterile) 0.5 ML IM ONE (19:32)
[2019-10-24] MEDS: ARIPiprazole 5 MG TABLET PO SCH (22:15)
[2019-10-24] MEDS: lamoTRIgine 100 MG TABLET PO SCH (22:17)
[2019-10-25] MEDS ORDERED: *HR* LORazepam 2 MG/ML VIAL IVP PRN ×3 (00:38)
[2019-10-25] MEDS: *HR* Heparin 5,000 UNIT/ML VIAL SQ SCH ×2 (06:36→17:33)
[2019-10-25] MEDS ORDERED: *HR* LORazepam 2 MG/ML VIAL IVP ONE ×2 (08:57→16:38)
[2019-10-25] MEDS: Vancomycin Oral Soln 125 MG/2.5 ML UDC PO SCH ×4 (09:54→20:35)
[2019-10-25] MEDS: Lactobacillus 1 EACH CAP.SPRINK PO SCH ×2 (09:54→20:42)
[2019-10-25] MEDS: Multivit/Ca/Min/Fe/FA 1 TAB TABLET PO SCH (09:54)
[2019-10-25] MEDS: Thiamine (B-1) 100 MG TABLET PO SCH (09:54)
[2019-10-25] MEDS: Insulin LISPRO 300 UNITS/3 ML VIAL SQ SCH ×4 (09:54→21:02)
[2019-10-25] MEDS: Metoprolol XL (24 HR) Succ 50 MG TAB.ER.24H PO SCH (09:54)
[2019-10-25] MEDS: Folic Acid 1 MG TABLET PO SCH (09:54)
[2019-10-25 10:10] LABS: Hematocrit 23.4 % (35.3-44.9); Hemoglobin 7.6 g/dL (11.5-15.4); Mean Corpuscular HGB Conc 32.5 g/dL (31.6-35.5); Mean Corpuscular Hemoglobin 36.5 pg (28.0-33.3); Mean Corpuscular Volume 112.5 fL (83.0-100.0); Mean Platelet Volume 9.9 fL (9.4-12.4); Platelet Count 214 K/mcL (140-400); Red Blood Count 2.08 M/mcL (3.82-4.97); Red Cell Distribution Width 16.7 % (11.5-14.5); White Blood Count 7.7 K/mcL (4.3-11.1)
[2019-10-25] MEDS: *HR* LORazepam 2 MG/ML VIAL IVP PRN (13:44)
[2019-10-25] MEDS: ARIPiprazole 5 MG TABLET PO SCH (20:35)
[2019-10-25] MEDS: lamoTRIgine 100 MG TABLET PO SCH (20:35)
[2019-10-26] MEDS: *HR* LORazepam 2 MG/ML VIAL IVP PRN ×2 (01:36→05:42)
[2019-10-26 02:42] LABS: Hematocrit 23.6 % (35.3-44.9); Hemoglobin 7.8 g/dL (11.5-15.4); Mean Corpuscular HGB Conc 33.1 g/dL (31.6-35.5); Mean Corpuscular Hemoglobin 36.8 pg (28.0-33.3); Mean Corpuscular Volume 111.3 fL (83.0-100.0); Mean Platelet Volume 9.8 fL (9.4-12.4); Platelet Count 224 K/mcL (140-400); Red Blood Count 2.12 M/mcL (3.82-4.97); Red Cell Distribution Width 16.9 % (11.5-14.5); White Blood Count 8.9 K/mcL (4.3-11.1)
[2019-10-26 03:01] LABS: Calcium 9.1 mg/dL (8.6-10.3); Potassium 3.8 mEq/L (3.5-5.1)
[2019-10-26] MEDS: *HR* Heparin 5,000 UNIT/ML VIAL SQ SCH ×2 (05:06→17:31)
[2019-10-26] MEDS: Insulin LISPRO 300 UNITS/3 ML VIAL SQ SCH ×4 (08:37→21:14)
[2019-10-26] MEDS: Metoprolol XL (24 HR) Succ 50 MG TAB.ER.24H PO SCH (09:09)
[2019-10-26] MEDS: Lactobacillus 1 EACH CAP.SPRINK PO SCH ×2 (09:09→21:29)
[2019-10-26] MEDS: Thiamine (B-1) 100 MG TABLET PO SCH (09:09)
[2019-10-26] MEDS: Multivit/Ca/Min/Fe/FA 1 TAB TABLET PO SCH (09:09)
[2019-10-26] MEDS: Vancomycin Oral Soln 125 MG/2.5 ML UDC PO SCH ×4 (09:10→21:28)
[2019-10-26] MEDS: Folic Acid 1 MG TABLET PO SCH (09:10)
[2019-10-26] MEDS ORDERED: Haloperidol Lactate 5 MG/ML VIAL IM PRN (13:37)
[2019-10-26] MEDS: ARIPiprazole 5 MG TABLET PO SCH (21:29)
[2019-10-26] MEDS: lamoTRIgine 100 MG TABLET PO SCH (21:29)
[2019-10-26] MEDS ORDERED: Haloperidol Lactate 5 MG/ML VIAL IVP ONE (23:38)
[2019-10-27] MEDS: *HR* Heparin 5,000 UNIT/ML VIAL SQ SCH ×2 (06:08→16:51)
[2019-10-27 06:30] LABS: Hematocrit 22.8 % (35.3-44.9); Hemoglobin 7.6 g/dL (11.5-15.4); Mean Corpuscular HGB Conc 33.3 g/dL (31.6-35.5); Mean Corpuscular Hemoglobin 37.1 pg (28.0-33.3); Mean Corpuscular Volume 111.2 fL (83.0-100.0); Platelet Count 257 K/mcL (140-400); Red Blood Count 2.05 M/mcL (3.82-4.97); Red Cell Distribution Width 16.7 % (11.5-14.5); White Blood Count 10.1 K/mcL (4.3-11.1)
[2019-10-27 06:49] LABS: Calcium 9.1 mg/dL (8.6-10.3); Potassium 4.1 mEq/L (3.5-5.1)
[2019-10-27] MEDS: Lactobacillus 1 EACH CAP.SPRINK PO SCH ×2 (09:12→21:02)
[2019-10-27] MEDS: Multivit/Ca/Min/Fe/FA 1 TAB TABLET PO SCH (09:12)
[2019-10-27] MEDS: Folic Acid 1 MG TABLET PO SCH (09:12)
[2019-10-27] MEDS: Metoprolol XL (24 HR) Succ 50 MG TAB.ER.24H PO SCH (09:13)
[2019-10-27] MEDS: Thiamine (B-1) 100 MG TABLET PO SCH (09:13)
[2019-10-27] MEDS: Insulin LISPRO 300 UNITS/3 ML VIAL SQ SCH ×4 (09:13→21:02)
[2019-10-27] MEDS: Vancomycin Oral Soln 125 MG/2.5 ML UDC PO SCH ×4 (09:13→21:02)
[2019-10-27 19:17] LABS: Bilirubin,Urine Negative (Negative); Blood,Urine Negative (Negative); Clarity,Urine Cloudy (Clear); Color,Urine Dark Yellow (Yellow); Glucose,Urine (UA) Normal (Normal); Ketones,Urine Negative (Negative); Leukocyte Esterase,Urine Moderate (Negative); Nitrite,Urine Positive (Negative); PH,Urine 8.5 pH Units (5.0-8.0); Protein,Urine 100 mg/dL (Neg-Trace); Specific Gravity,Urine 1.017 (1.010-1.025); Urobilinogen,Urine Normal (Normal)
[2019-10-27 19:24] LABS: Bacteria,Urine Moderate per hpf (None-Few); Hyaline Casts,Urine None Seen per lpf (None-Few); Squamous Epithelial Cell,Urine Many per lpf (None-Few)
[2019-10-27 20:15] LABS: Mucus,Urine Few per lpf (Few); Triple Phosphate Crystal,Urine Present
[2019-10-27] MEDS: ARIPiprazole 10 MG TABLET PO SCH (21:02)
[2019-10-27] MEDS: lamoTRIgine 100 MG TABLET PO SCH (21:02)
[2019-10-28 05:53] LABS: Hematocrit 22.7 % (35.3-44.9); Hemoglobin 7.3 g/dL (11.5-15.4); Mean Corpuscular HGB Conc 32.2 g/dL (31.6-35.5); Mean Corpuscular Hemoglobin 35.8 pg (28.0-33.3); Mean Corpuscular Volume 111.3 fL (83.0-100.0); Mean Platelet Volume 10.1 fL (9.4-12.4); Platelet Count 262 K/mcL (140-400); Red Blood Count 2.04 M/mcL (3.82-4.97); Red Cell Distribution Width 16.7 % (11.5-14.5); White Blood Count 8.3 K/mcL (4.3-11.1)
[2019-10-28] MEDS: *HR* Heparin 5,000 UNIT/ML VIAL SQ SCH ×2 (06:19→16:46)
[2019-10-28] MEDS: Insulin LISPRO 300 UNITS/3 ML VIAL SQ SCH ×4 (08:29→20:19)
[2019-10-28] MEDS: Iron Sucrose Complex 250 MG in 0.9 % Sodium Chloride 250 ML IVPB SCH (08:51)
[2019-10-28] MEDS: Metoprolol XL (24 HR) Succ 50 MG TAB.ER.24H PO SCH (08:52)
[2019-10-28] MEDS: Vancomycin Oral Soln 125 MG/2.5 ML UDC PO SCH ×4 (08:52→20:29)
[2019-10-28] MEDS: Thiamine (B-1) 100 MG TABLET PO SCH (08:53)
[2019-10-28] MEDS: Folic Acid 1 MG TABLET PO SCH (08:53)
[2019-10-28] MEDS: Lactobacillus 1 EACH CAP.SPRINK PO SCH ×2 (08:53→20:20)
[2019-10-28] MEDS: Multivit/Ca/Min/Fe/FA 1 TAB TABLET PO SCH (08:53)
[2019-10-28] MEDS: ARIPiprazole 10 MG TABLET PO SCH (20:20)
[2019-10-28] MEDS: lamoTRIgine 100 MG TABLET PO SCH (20:20)
[2019-10-29 04:20] LABS: Hematocrit 24.8 % (35.3-44.9); Hemoglobin 8.1 g/dL (11.5-15.4); Mean Corpuscular HGB Conc 32.7 g/dL (31.6-35.5); Mean Corpuscular Hemoglobin 36.5 pg (28.0-33.3); Mean Corpuscular Volume 111.7 fL (83.0-100.0); Mean Platelet Volume 10.3 fL (9.4-12.4); Platelet Count 315 K/mcL (140-400); Red Blood Count 2.22 M/mcL (3.82-4.97); Red Cell Distribution Width 16.8 % (11.5-14.5); White Blood Count 8.9 K/mcL (4.3-11.1)
[2019-10-29] MEDS: *HR* Heparin 5,000 UNIT/ML VIAL SQ SCH ×2 (05:45→15:14)
[2019-10-29 08:08] VITALS: BP 128/63
[2019-10-29] MEDS: Insulin LISPRO 300 UNITS/3 ML VIAL SQ SCH ×3 (08:17→16:09)
[2019-10-29] MEDS: Multivit/Ca/Min/Fe/FA 1 TAB TABLET PO SCH (08:22)
[2019-10-29] MEDS: Vancomycin Oral Soln 125 MG/2.5 ML UDC PO SCH ×3 (08:22→16:19)
[2019-10-29] MEDS: Iron Sucrose Complex 250 MG in 0.9 % Sodium Chloride 250 ML IVPB SCH (08:22)
[2019-10-29] MEDS: Metoprolol XL (24 HR) Succ 50 MG TAB.ER.24H PO SCH (08:23)
[2019-10-29] MEDS: Lactobacillus 1 EACH CAP.SPRINK PO SCH (08:23)
[2019-10-29] MEDS: Folic Acid 1 MG TABLET PO SCH (08:23)
[2019-10-29] MEDS: Thiamine (B-1) 100 MG TABLET PO SCH (08:23)
== END 2019-10-29 18:35 | disposition home health service (06) | DRG 469 ==
LOC: 2ANU 18:13 → EMEROOARM 18:13 → SUATTDRO 21:18 → 2ANU 21:52 → SUATTDRO 10-19 15:21
PROVIDERS: ADMIT Internal Medicine; ATTEND Internal Medicine
PROC: ENDOEBX (2019-10-24 08:00)

== ENCOUNTER 2019-12-15 15:50 | Inpatient (IN) ==
[2019-12-15 16:47] LABS: Basophils # 0.1 K/mcL (0.0-0.2); Basophils % 0.7 %; Eosinophils # 0.5 K/mcL (0.0-0.6); Eosinophils % 5.4 %; Hematocrit 23.1 % (35.3-44.9); Hemoglobin 7.5 g/dL (11.5-15.4); Immature Granulocytes % 0.5 % (0-4); Lymphocytes # 2.6 K/mcL (0.6-4.6); Lymphocytes % 25.6 %; Mean Corpuscular HGB Conc 32.5 g/dL (31.6-35.5); Mean Corpuscular Hemoglobin 32.3 pg (28.0-33.3); Mean Corpuscular Volume 99.6 fL (83.0-100.0); Mean Platelet Volume 9.1 fL (9.4-12.4); Monocytes # 1.2 K/mcL (0.0-1.3); Neutrophils # 5.6 K/mcL (1.6-8.9); Platelet Count 348 K/mcL (140-400); Red Blood Count 2.32 M/mcL (3.82-4.97); Red Cell Distribution Width 15.2 % (11.5-14.5); Segmented Neutrophils % 55.8 %
[2019-12-15 17:06] LABS: BUN/Creatinine Ratio 12 (6-26); Blood Urea Nitrogen 53 mg/dL (8-23); Calcium 8.6 mg/dL (8.6-10.3); Carbon Dioxide 19 mEq/L (23-29); Chloride 111 mEq/L (98-107); Glucose 114 mg/dL (70-105); Osmolality,Calculated 305 (280-300); Potassium 4.4 mEq/L (3.5-5.1); Sodium 140 mEq/L (136-145); eGFR For African Americans 12 (> 60); eGFR For Non-African Americans 10 (> 60)
[2019-12-15 17:07] LABS: Troponin I < 0.03 ng/mL (< 0.04)
[2019-12-15] MEDS ORDERED: Naloxone 0.4 MG/ML INJ IVP PRN (17:57)
[2019-12-15 20:31] LABS: Bilirubin,Urine Negative (Negative); Blood,Urine Negative (Negative); Clarity,Urine Clear (Clear); Color,Urine Yellow (Yellow); Glucose,Urine (UA) Normal (Normal); Ketones,Urine Negative (Negative); Leukocyte Esterase,Urine Moderate (Negative); Nitrite,Urine Negative (Negative); Protein,Urine Negative (Neg-Trace); Specific Gravity,Urine 1.011 (1.010-1.025); Urobilinogen,Urine Normal (Normal)
[2019-12-15 20:33] LABS: Bacteria,Urine None Seen per hpf (None-Few); Hyaline Casts,Urine None Seen per lpf (None-Few); RBC,Urine 0-3 per hpf (0-3); Squamous Epithelial Cell,Urine Many per lpf (None-Few); WBC,Urine 15-30 per hpf (0-3)
[2019-12-15 20:52] LABS: Sodium, Urine 94.6 mEq/L
[2019-12-16 02:03] LABS: Basophils # 0.1 K/mcL (0.0-0.2); Basophils % 0.6 %; Eosinophils # 0.6 K/mcL (0.0-0.6); Eosinophils % 6.3 %; Hematocrit 20.9 % (35.3-44.9); Hemoglobin 6.6 g/dL (11.5-15.4); Immature Granulocytes % 0.4 % (0-4); Lymphocytes # 3.2 K/mcL (0.6-4.6); Lymphocytes % 33.5 %; Mean Corpuscular HGB Conc 31.6 g/dL (31.6-35.5); Mean Corpuscular Hemoglobin 31.4 pg (28.0-33.3); Mean Corpuscular Volume 99.5 fL (83.0-100.0); Mean Platelet Volume 9.5 fL (9.4-12.4); Monocytes % 9.8 %; Neutrophils # 4.8 K/mcL (1.6-8.9); Platelet Count 326 K/mcL (140-400); Red Cell Distribution Width 15.3 % (11.5-14.5); Segmented Neutrophils % 49.4 %; White Blood Count 9.7 K/mcL (4.3-11.1)
[2019-12-16 02:10] LABS: INR 1.1; Prothrombin Time 12.3 Seconds (9.4-12.1)
[2019-12-16 02:12] LABS: Activated Partial Thrombo Time 40.3 Seconds (26.0-36.0)
[2019-12-16 02:21] LABS: Calcium 8.4 mg/dL (8.6-10.3); Magnesium 1.8 mg/dL (1.6-2.6); Phosphorous 7.4 mg/dL (2.7-4.5); Potassium 4.3 mEq/L (3.5-5.1)
[2019-12-16 02:23] LABS: % Iron Saturation 25 % (15-50); Iron 36 mcg/dL (50-170); Transferrin 104 mg/dL (203-362)
[2019-12-16 02:41] LABS: Ferritin 312 ng/mL (10-120)
[2019-12-16] MEDS ORDERED: Morphine Sulfate 2 MG/ML SYRINGE IVP ONE (03:42)
[2019-12-16] MEDS: *HR* Heparin 5,000 UNIT/ML VIAL SQ SCH ×2 (05:09→17:13)
[2019-12-16] MEDS ORDERED: 0.9 % Sodium Chloride 250 ML ONE (05:24)
[2019-12-16 10:26] LABS: Hepatitis B Surface Antibody < 3.10 mIU/mL
[2019-12-16 10:27] LABS: Hematocrit 21.9 % (35.3-44.9); Hemoglobin 7.2 g/dL (11.5-15.4)
[2019-12-16 10:37] LABS: Hepatitis B Surface Antigen Nonreactive (Nonreactive)
[2019-12-16] MEDS ORDERED: *HR* Heparin 5,000 UNIT/ML VIAL ONE (11:02)
[2019-12-16 11:05] LABS: Hepatitis B Core IgM Nonreactive (Nonreactive)
[2019-12-16] MEDS ORDERED: Ondansetron ODT 4 MG TAB.RAPDIS SL PRN (11:22)
[2019-12-16] MEDS ORDERED: 0.9 % Sodium Chloride 250 ML IVC PRN (11:53)
[2019-12-16] MEDS ORDERED: *HR* Heparin 10,000 UNIT/10 ML VIAL IV PRN (11:53)
[2019-12-16] MEDS ORDERED: 0.9 % Sodium Chloride 1,000 ML PRIME SCH (12:00)
[2019-12-16] MEDS ORDERED: Dextrose Gel 15 GM/37.5 ML TUBE PO PRN ×2 (12:44)
[2019-12-16] MEDS ORDERED: *HR* Dextrose 50 % in Water (Syg) 50 ML SYRINGE IVP PRN (12:44)
[2019-12-16] MEDS ORDERED: D5% in Water 1,000 ML IVC PRN (12:44)
[2019-12-16] MEDS: Insulin LISPRO 300 UNITS/3 ML VIAL SQ SCH ×2 (19:31→22:31)
[2019-12-16] MEDS: rOPINIRole 0.25 MG TABLET PO SCH (21:32)
[2019-12-16] MEDS: Cholecalciferol (D-3) 1,000 UNIT (25MCG) TABLET PO SCH (21:32)
[2019-12-16] MEDS: hydrOXYzine pamoate 25 MG CAPSULE PO SCH (21:33)
[2019-12-16] MEDS: lamoTRIgine 100 MG TABLET PO SCH (21:33)
[2019-12-16] MEDS: Gabapentin 100 MG CAPSULE PO SCH (21:33)
[2019-12-16] MEDS: ARIPiprazole 5 MG TABLET PO SCH (21:33)
[2019-12-17 02:14] LABS: Basophils # 0.1 K/mcL (0.0-0.2); Basophils % 0.6 %; Eosinophils # 0.4 K/mcL (0.0-0.6); Eosinophils % 5.1 %; Hematocrit 19.9 % (35.3-44.9); Hemoglobin 6.6 g/dL (11.5-15.4); Immature Granulocytes % 0.4 % (0-4); Lymphocytes # 2.7 K/mcL (0.6-4.6); Lymphocytes % 33.7 %; Mean Corpuscular HGB Conc 33.2 g/dL (31.6-35.5); Mean Corpuscular Hemoglobin 32.2 pg (28.0-33.3); Mean Corpuscular Volume 97.1 fL (83.0-100.0); Mean Platelet Volume 9.4 fL (9.4-12.4); Monocytes # 0.9 K/mcL (0.0-1.3); Monocytes % 11.2 %; Platelet Count 172 K/mcL (140-400); Red Blood Count 2.05 M/mcL (3.82-4.97); Red Cell Distribution Width 15.3 % (11.5-14.5); White Blood Count 8.1 K/mcL (4.3-11.1)
[2019-12-17 02:32] LABS: Albumin 2.2 g/dL (3.5-5.7); Albumin/Globulin Ratio 0.8 (1.1-2.2); Bilirubin,Total 0.4 mg/dL (0.3-1.0); Calcium 7.9 mg/dL (8.6-10.3); Globulin 2.6 g/dL (2.4-3.5); Potassium 4.1 mEq/L (3.5-5.1); Total Protein 4.8 g/dL (6.4-8.9)
[2019-12-17] MEDS: *HR* Heparin 5,000 UNIT/ML VIAL SQ SCH ×2 (05:54→17:25)
[2019-12-17] MEDS ORDERED: *HR* Heparin 10,000 UNIT/10 ML VIAL IV PRN (07:20)
[2019-12-17] MEDS ORDERED: 0.9 % Sodium Chloride 250 ML IVC PRN (07:20)
[2019-12-17] MEDS: Multivit/Ca/Min/Fe/FA 1 TAB TABLET PO SCH (07:58)
[2019-12-17] MEDS: Cholecalciferol (D-3) 1,000 UNIT (25MCG) TABLET PO SCH ×2 (07:58→20:45)
[2019-12-17] MEDS: Cyanocobalamin (B-12) 1,000 MCG TABLET PO SCH (07:58)
[2019-12-17] MEDS: Gabapentin 100 MG CAPSULE PO SCH ×2 (07:59→20:46)
[2019-12-17] MEDS: Lactulose Oral Soln 20 GM/30 ML UDC PO SCH (08:09)
[2019-12-17] MEDS: Insulin LISPRO 300 UNITS/3 ML VIAL SQ SCH ×4 (08:33→20:52)
[2019-12-17] MEDS: Metoprolol XL (24 HR) Succ 50 MG TAB.ER.24H PO SCH (13:31)
[2019-12-17] MEDS: lamoTRIgine 100 MG TABLET PO SCH (20:45)
[2019-12-17] MEDS: hydrOXYzine pamoate 25 MG CAPSULE PO SCH (20:45)
[2019-12-17] MEDS: ARIPiprazole 5 MG TABLET PO SCH (20:46)
[2019-12-17] MEDS: rOPINIRole 0.25 MG TABLET PO SCH (20:46)
[2019-12-18 04:16] LABS: Basophils # 0.1 K/mcL (0.0-0.2); Basophils % 0.7 %; Eosinophils # 0.4 K/mcL (0.0-0.6); Hematocrit 25.3 % (35.3-44.9); Hemoglobin 8.1 g/dL (11.5-15.4); Immature Granulocytes % 0.6 % (0-4); Lymphocytes # 3.2 K/mcL (0.6-4.6); Lymphocytes % 36.9 %; Mean Corpuscular Hemoglobin 30.2 pg (28.0-33.3); Mean Corpuscular Volume 94.4 fL (83.0-100.0); Mean Platelet Volume 9.7 fL (9.4-12.4); Monocytes # 1.1 K/mcL (0.0-1.3); Neutrophils # 3.9 K/mcL (1.6-8.9); Platelet Count 113 K/mcL (140-400); Red Blood Count 2.68 M/mcL (3.82-4.97); Segmented Neutrophils % 44.8 %; White Blood Count 8.8 K/mcL (4.3-11.1)
[2019-12-18 04:35] LABS: Calcium 8.3 mg/dL (8.6-10.3); Potassium 3.7 mEq/L (3.5-5.1)
[2019-12-18] MEDS: *HR* Heparin 5,000 UNIT/ML VIAL SQ SCH ×2 (05:26→17:49)
[2019-12-18] MEDS ORDERED: *HR* Heparin 10,000 UNIT/10 ML VIAL IV PRN (07:20)
[2019-12-18] MEDS ORDERED: 0.9 % Sodium Chloride 250 ML IVC PRN (07:20)
[2019-12-18] MEDS: Insulin LISPRO 300 UNITS/3 ML VIAL SQ SCH ×4 (07:30→21:23)
[2019-12-18] MEDS ORDERED: 0.9 % Sodium Chloride 1,000 ML PRIME SCH (07:30)
[2019-12-18] MEDS: Multivit/Ca/Min/Fe/FA 1 TAB TABLET PO SCH (07:55)
[2019-12-18] MEDS: Cholecalciferol (D-3) 1,000 UNIT (25MCG) TABLET PO SCH ×2 (07:55→21:22)
[2019-12-18] MEDS: Gabapentin 100 MG CAPSULE PO SCH ×2 (07:56→21:22)
[2019-12-18] MEDS: Cyanocobalamin (B-12) 1,000 MCG TABLET PO SCH (07:56)
[2019-12-18] MEDS: Lactulose Oral Soln 20 GM/30 ML UDC PO SCH (11:59)
[2019-12-18] MEDS: Metoprolol XL (24 HR) Succ 50 MG TAB.ER.24H PO SCH (11:59)
[2019-12-18] MEDS: lamoTRIgine 100 MG TABLET PO SCH (21:22)
[2019-12-18] MEDS: ARIPiprazole 5 MG TABLET PO SCH (21:22)
[2019-12-18] MEDS: rOPINIRole 0.25 MG TABLET PO SCH (21:22)
[2019-12-18] MEDS: hydrOXYzine pamoate 25 MG CAPSULE PO SCH (21:22)
[2019-12-19 04:30] LABS: Red Cell Distribution Width 15.6 % (11.5-14.5)
[2019-12-19 04:31] LABS: Basophils % 0.4 %; Eosinophils # 0.5 K/mcL (0.0-0.6); Eosinophils % 5.9 %; Hematocrit 22.7 % (35.3-44.9); Hemoglobin 7.4 g/dL (11.5-15.4); Immature Granulocytes % 0.5 % (0-4); Immature Platelets 3.1 % (1.1-6.1); Mean Corpuscular HGB Conc 32.6 g/dL (31.6-35.5); Mean Corpuscular Hemoglobin 31.2 pg (28.0-33.3); Mean Corpuscular Volume 95.8 fL (83.0-100.0); Mean Platelet Volume 10.1 fL (9.4-12.4); Monocytes % 12.6 %; Neutrophils # 3.4 K/mcL (1.6-8.9); Platelet Count 102 K/mcL (140-400); Red Blood Count 2.37 M/mcL (3.82-4.97); Segmented Neutrophils % 42.6 %; White Blood Count 7.9 K/mcL (4.3-11.1)
[2019-12-19 04:41] LABS: Albumin 2.2 g/dL (3.5-5.7); Albumin/Globulin Ratio 0.8 (1.1-2.2); Bilirubin,Direct 0.2 mg/dL (0.0-0.2); Bilirubin,Indirect 0.2 mg/dL (0.0-1.0); Bilirubin,Total 0.4 mg/dL (0.3-1.0); Globulin 2.7 g/dL (2.4-3.5); Magnesium 1.9 mg/dL (1.6-2.6); Phosphorous 5.7 mg/dL (2.7-4.5); Total Protein 4.9 g/dL (6.4-8.9)
[2019-12-19 05:04] LABS: Calcium 8.2 mg/dL (8.6-10.3)
[2019-12-19 05:20] LABS: Troponin I 0.03 ng/mL (< 0.04)
[2019-12-19] MEDS: *HR* Heparin 5,000 UNIT/ML VIAL SQ SCH ×2 (05:45→17:03)
[2019-12-19] MEDS: Insulin LISPRO 300 UNITS/3 ML VIAL SQ SCH ×4 (07:35→20:53)
[2019-12-19] MEDS: Cyanocobalamin (B-12) 1,000 MCG TABLET PO SCH (08:25)
[2019-12-19] MEDS: Multivit/Ca/Min/Fe/FA 1 TAB TABLET PO SCH (08:25)
[2019-12-19] MEDS: Gabapentin 100 MG CAPSULE PO SCH ×2 (08:25→20:52)
[2019-12-19] MEDS: Cholecalciferol (D-3) 1,000 UNIT (25MCG) TABLET PO SCH ×2 (08:25→20:52)
[2019-12-19] MEDS ORDERED: *HR* Heparin 10,000 UNIT/10 ML VIAL IV PRN (08:35)
[2019-12-19] MEDS ORDERED: 0.9 % Sodium Chloride 250 ML IVC PRN (08:35)
[2019-12-19] MEDS ORDERED: 0.9 % Sodium Chloride 1,000 ML PRIME SCH (08:45)
[2019-12-19] MEDS ORDERED: Lidocaine/EPI 1:100k 1% 50 ML VIAL ONE (09:01)
[2019-12-19] MEDS ORDERED: Heparin 1,000 UNITS/500 mL 500 ML ONE (09:01)
[2019-12-19] MEDS ORDERED: 0.9 % Sodium Chloride 500 ML ONE (09:18)
[2019-12-19] MEDS ORDERED: *HR* FentaNYL (PF) 100 MCG/2 ML VIAL IVP ONE ×2 (09:22→09:25)
[2019-12-19] MEDS ORDERED: CeFAZolin 2,000 MG/50 ML BAG IVPB ONE (09:23)
[2019-12-19] MEDS ORDERED: *HR* Midazolam HCl 2 MG/2 ML VIAL IVP ONE (09:25)
[2019-12-19] MEDS ORDERED: *HR* Heparin 5,000 UNIT/ML VIAL ONE (09:48)
[2019-12-19] MEDS ORDERED: Acetaminophen 325 MG TABLET PO PRN (13:02)
[2019-12-19] MEDS: Metoprolol XL (24 HR) Succ 50 MG TAB.ER.24H PO SCH (14:29)
[2019-12-19] MEDS: Lactulose Oral Soln 20 GM/30 ML UDC PO SCH (14:29)
[2019-12-19] MEDS: Calcium Acetate 667 MG CAPSULE PO SCH (16:37)
[2019-12-19] MEDS: lamoTRIgine 100 MG TABLET PO SCH (20:52)
[2019-12-19] MEDS: ARIPiprazole 5 MG TABLET PO SCH (20:52)
[2019-12-19] MEDS: hydrOXYzine pamoate 25 MG CAPSULE PO SCH (20:52)
[2019-12-19] MEDS: rOPINIRole 0.25 MG TABLET PO SCH (20:53)
[2019-12-20 02:36] LABS: Basophils % 0.5 %; Hemoglobin 7.4 g/dL (11.5-15.4); Immature Granulocytes % 0.4 % (0-4)
[2019-12-20 02:38] LABS: Basophils # 0.1 K/mcL (0.0-0.2); Eosinophils # 0.3 K/mcL (0.0-0.6); Eosinophils % 3.2 %; Hematocrit 22.6 % (35.3-44.9); Immature Platelets 3.5 % (1.1-6.1); Lymphocytes # 3.4 K/mcL (0.6-4.6); Mean Corpuscular HGB Conc 32.7 g/dL (31.6-35.5); Mean Corpuscular Hemoglobin 31.5 pg (28.0-33.3); Mean Corpuscular Volume 96.2 fL (83.0-100.0); Mean Platelet Volume 10.7 fL (9.4-12.4); Monocytes # 1.4 K/mcL (0.0-1.3); Monocytes % 13.3 %; Neutrophils # 5.1 K/mcL (1.6-8.9); Red Blood Count 2.35 M/mcL (3.82-4.97); Red Cell Distribution Width 15.8 % (11.5-14.5); Segmented Neutrophils % 49.6 %; White Blood Count 10.3 K/mcL (4.3-11.1)
[2019-12-20 02:40] LABS: Platelet Count 86 K/mcL (140-400)
[2019-12-20 02:55] LABS: Calcium 8.4 mg/dL (8.6-10.3); Potassium 3.9 mEq/L (3.5-5.1)
[2019-12-20 03:12] LABS: Platelet Estimate Slight Decrease (Normal)
[2019-12-20] MEDS: *HR* Heparin 5,000 UNIT/ML VIAL SQ SCH (07:53)
[2019-12-20] MEDS: Insulin LISPRO 300 UNITS/3 ML VIAL SQ SCH ×2 (07:53→11:30)
[2019-12-20] MEDS: Cholecalciferol (D-3) 1,000 UNIT (25MCG) TABLET PO SCH (07:59)
[2019-12-20] MEDS: Cyanocobalamin (B-12) 1,000 MCG TABLET PO SCH (07:59)
[2019-12-20] MEDS: Metoprolol XL (24 HR) Succ 50 MG TAB.ER.24H PO SCH (07:59)
[2019-12-20] MEDS: Lactulose Oral Soln 20 GM/30 ML UDC PO SCH (07:59)
[2019-12-20] MEDS: Multivit/Ca/Min/Fe/FA 1 TAB TABLET PO SCH (07:59)
[2019-12-20] MEDS: Calcium Acetate 667 MG CAPSULE PO SCH ×2 (07:59→12:30)
[2019-12-20] MEDS: Gabapentin 100 MG CAPSULE PO SCH (07:59)
[2019-12-20 11:12] VITALS: BP 125/74
== END 2019-12-20 13:30 | disposition home or self-care (01) | DRG 469 ==
LOC: EMEROOARM 15:50 → 2ANU 15:50 → SUATTDRO 18:10 → 2ANU 18:25 → SUATTDRO 12-16 14:34
PROVIDERS: ADMIT Internal Medicine; ATTEND Student in an Organized Health Care Education/Training Program
PROC: IRPERMA (2019-12-19 11:00)

== ENCOUNTER 2020-02-11 15:32 | Inpatient (IN) ==
[2020-02-11 16:44] LABS: Basophils # 0.1 K/mcL (0.0-0.2); Basophils % 0.5 %; Eosinophils # 0.5 K/mcL (0.0-0.6); Eosinophils % 2.6 %; Hematocrit 34.9 % (35.3-44.9); Hemoglobin 10.9 g/dL (11.5-15.4); Immature Granulocytes % 0.4 % (0-4); Lymphocytes # 2.4 K/mcL (0.6-4.6); Lymphocytes % 12.3 %; Mean Corpuscular HGB Conc 31.2 g/dL (31.6-35.5); Mean Corpuscular Hemoglobin 30.8 pg (28.0-33.3); Mean Corpuscular Volume 98.6 fL (83.0-100.0); Mean Platelet Volume 9.9 fL (9.4-12.4); Monocytes # 1.8 K/mcL (0.0-1.3); Monocytes % 9.3 %; Neutrophils # 14.5 K/mcL (1.6-8.9); Platelet Count 248 K/mcL (140-400); Red Blood Count 3.54 M/mcL (3.82-4.97); Red Cell Distribution Width 16.4 % (11.5-14.5); Segmented Neutrophils % 74.9 %; White Blood Count 19.3 K/mcL (4.3-11.1)
[2020-02-11 16:48] LABS: INR 1.1
[2020-02-11 16:51] LABS: Activated Partial Thrombo Time 39.4 Seconds (26.0-36.0)
[2020-02-11 17:07] LABS: Albumin 3.5 g/dL (3.5-5.7); Albumin/Globulin Ratio 0.9 (1.1-2.2); Bilirubin,Direct 0.3 mg/dL (0.0-0.2); Bilirubin,Indirect 0.6 mg/dL (0.0-1.0); Bilirubin,Total 0.9 mg/dL (0.3-1.0); Calcium 9.3 mg/dL (8.6-10.3); Globulin 3.7 g/dL (2.4-3.5); Potassium 3.2 mEq/L (3.5-5.1); Total Protein 7.2 g/dL (6.4-8.9); Troponin I 0.04 ng/mL (< 0.04)
[2020-02-11] MEDS ORDERED: Piperacillin/Tazobactam 3.375 GM in 0.9 % Sodium Chloride Mini Bag 100 ML IVPB ONE (17:07)
[2020-02-11] MEDS ORDERED: Azithromycin 500 MG in 0.9 % Sodium Chloride 250 ML IVPB ONE (17:07)
[2020-02-11] MEDS ORDERED: Vancomycin 1,500 MG/265 ML IV.SOLN IVPB ONE (17:30)
[2020-02-11] MEDS ORDERED: Naloxone 0.4 MG/ML INJ IVP PRN (17:46)
[2020-02-11] MEDS ORDERED: Ondansetron 4 MG/2 ML VIAL IVP PRN (17:46)
[2020-02-11] MEDS ORDERED: Ipratropium/Albuterol Neb 3 ML IH PRN (17:49)
[2020-02-11] MEDS ORDERED: *HR* Labetalol 20 MG/4 ML SYRINGE IVP PRN (18:11)
[2020-02-11] MEDS: predniSONE 20 MG TABLET PO SCH (19:01)
[2020-02-11] MEDS: Ipratropium/Albuterol Neb 3 ML IH SCH ×2 (19:52→23:56)
[2020-02-11 21:11] LABS: Bacteria,Urine Few per hpf (None-Few); Bilirubin,Urine Negative (Negative); Blood,Urine Trace (Negative); Clarity,Urine Turbid (Clear); Color,Urine Yellow (Yellow); Glucose,Urine (UA) 50 mg/dL (Normal); Ketones,Urine Negative (Negative); Leukocyte Esterase,Urine Large (Negative); Mucus,Urine Few per lpf (None-Few); Nitrite,Urine Negative (Negative); PH,Urine 6.5 pH Units (5.0-8.0); Protein,Urine 70 mg/dL (Neg-Trace); RBC,Urine 15-30 per hpf (0-3); Specific Gravity,Urine 1.011 (1.010-1.025); Squamous Epithelial Cell,Urine Few per hpf (None-Few); Urobilinogen,Urine Normal (Normal); WBC,Urine TNTC per hpf (0-3)
[2020-02-12] MEDS: Ipratropium/Albuterol Neb 3 ML IH SCH ×6 (03:52→23:37)
[2020-02-12 05:23] LABS: Basophils % 0.2 %; Eosinophils % 0.1 %; Hematocrit 30.3 % (35.3-44.9); Immature Granulocytes % 0.5 % (0-4); Lymphocytes # 1.4 K/mcL (0.6-4.6); Lymphocytes % 11.8 %; Mean Corpuscular HGB Conc 30.4 g/dL (31.6-35.5); Mean Corpuscular Hemoglobin 30.5 pg (28.0-33.3); Mean Corpuscular Volume 100.3 fL (83.0-100.0); Mean Platelet Volume 9.9 fL (9.4-12.4); Monocytes # 0.4 K/mcL (0.0-1.3); Monocytes % 3.4 %; Neutrophils # 9.6 K/mcL (1.6-8.9); Platelet Count 193 K/mcL (140-400); Red Blood Count 3.02 M/mcL (3.82-4.97); Red Cell Distribution Width 16.3 % (11.5-14.5); White Blood Count 11.5 K/mcL (4.3-11.1)
[2020-02-12 05:31] LABS: Hemoglobin 9.2 g/dL (11.5-15.4)
[2020-02-12] MEDS: *HR* Heparin 5,000 UNIT/ML VIAL SQ SCH ×2 (05:41→16:59)
[2020-02-12 05:42] LABS: Calcium 8.6 mg/dL (8.6-10.3); Magnesium 1.7 mg/dL (1.6-2.6); Potassium 3.8 mEq/L (3.5-5.1)
[2020-02-12] MEDS ORDERED: Bumetanide 1 MG TABLET PO SCH (09:00)
[2020-02-12] MEDS: Gabapentin 100 MG CAPSULE PO SCH ×2 (09:25→21:01)
[2020-02-12] MEDS: Cyanocobalamin (B-12) 1,000 MCG TABLET PO SCH (09:25)
[2020-02-12] MEDS: allopurinoL 100 MG TABLET PO SCH (09:25)
[2020-02-12] MEDS: Metoprolol XL (24 HR) Succ 50 MG TAB.ER.24H PO SCH (09:29)
[2020-02-12] MEDS: Lactulose Oral Soln 20 GM/30 ML UDC PO SCH (09:30)
[2020-02-12] MEDS ORDERED: *HR* Dextrose 50 % in Water (Syg) 50 ML SYRINGE IVP PRN (13:30)
[2020-02-12] MEDS ORDERED: Insulin DETEMIR 100 UNIT/ML X5UNITS SQ SCH (13:30)
[2020-02-12] MEDS ORDERED: Dextrose Gel 15 GM/37.5 ML TUBE PO PRN ×2 (13:30)
[2020-02-12] MEDS ORDERED: D5% in Water 1,000 ML IVC PRN (13:30)
[2020-02-12] MEDS: predniSONE 20 MG TABLET PO SCH (16:58)
[2020-02-12] MEDS: Azithromycin 250 MG TABLET PO SCH (16:58)
[2020-02-12] MEDS: Insulin LISPRO 300 UNITS/3 ML VIAL SQ SCH (16:59)
[2020-02-12] MEDS: lamoTRIgine 100 MG TABLET PO SCH (21:01)
[2020-02-12] MEDS: ARIPiprazole 5 MG TABLET PO SCH (21:01)
[2020-02-12] MEDS: HYDROcodone BIT/Homatropine LQ 5 MG/5 ML UDC PO PRN (21:21)
[2020-02-13] MEDS: Ipratropium/Albuterol Neb 3 ML IH SCH ×6 (03:18→23:25)
[2020-02-13 03:22] LABS: Basophils % 0.1 %; Hematocrit 26.4 % (35.3-44.9); Hemoglobin 8.1 g/dL (11.5-15.4); Immature Granulocytes % 0.4 % (0-4); Lymphocytes % 6.7 %; Mean Corpuscular HGB Conc 30.7 g/dL (31.6-35.5); Mean Corpuscular Hemoglobin 30.5 pg (28.0-33.3); Mean Corpuscular Volume 99.2 fL (83.0-100.0); Mean Platelet Volume 9.9 fL (9.4-12.4); Monocytes # 0.8 K/mcL (0.0-1.3); Monocytes % 5.1 %; Neutrophils # 12.9 K/mcL (1.6-8.9); Platelet Count 205 K/mcL (140-400); Red Blood Count 2.66 M/mcL (3.82-4.97); Red Cell Distribution Width 16.8 % (11.5-14.5); Segmented Neutrophils % 87.7 %; White Blood Count 14.7 K/mcL (4.3-11.1)
[2020-02-13 03:45] LABS: Calcium 8.3 mg/dL (8.6-10.3); Potassium 4.2 mEq/L (3.5-5.1)
[2020-02-13] MEDS ORDERED: 0.9 % Sodium Chloride 250 ML IVC PRN (05:50)
[2020-02-13] MEDS: *HR* Heparin 5,000 UNIT/ML VIAL SQ SCH ×2 (05:59→17:35)
[2020-02-13] MEDS ORDERED: 0.9 % Sodium Chloride 1,000 ML PRIME SCH (06:00)
[2020-02-13] MEDS: HYDROcodone BIT/Homatropine LQ 5 MG/5 ML UDC PO PRN ×2 (06:04→21:38)
[2020-02-13] MEDS: Lactulose Oral Soln 20 GM/30 ML UDC PO SCH (07:58)
[2020-02-13] MEDS: allopurinoL 100 MG TABLET PO SCH (07:59)
[2020-02-13] MEDS: Gabapentin 100 MG CAPSULE PO SCH ×2 (07:59→21:38)
[2020-02-13] MEDS: Cyanocobalamin (B-12) 1,000 MCG TABLET PO SCH (07:59)
[2020-02-13] MEDS: Insulin LISPRO 300 UNITS/3 ML VIAL SQ SCH ×6 (08:03→17:39)
[2020-02-13] MEDS ORDERED: *HR* Heparin 10,000 UNIT/10 ML VIAL IV PRN (10:33)
[2020-02-13 11:02] LABS: Hepatitis B Surface Antibody < 3.10 mIU/mL
[2020-02-13 11:13] LABS: Hepatitis B Surface Antigen Nonreactive (Nonreactive)
[2020-02-13] MEDS: Insulin DETEMIR 100 UNIT/ML X5UNITS SQ SCH (12:33)
[2020-02-13] MEDS: Metoprolol XL (24 HR) Succ 50 MG TAB.ER.24H PO SCH (12:33)
[2020-02-13] MEDS: predniSONE 20 MG TABLET PO SCH (17:35)
[2020-02-13] MEDS: Azithromycin 250 MG TABLET PO SCH (17:35)
[2020-02-13] MEDS: lamoTRIgine 100 MG TABLET PO SCH (21:38)
[2020-02-13] MEDS: ARIPiprazole 5 MG TABLET PO SCH (21:38)
[2020-02-14 02:43] LABS: Basophils % 0.2 %; Hematocrit 26.5 % (35.3-44.9); Hemoglobin 8.1 g/dL (11.5-15.4); Immature Granulocytes % 0.6 % (0-4); Lymphocytes % 7.6 %; Mean Corpuscular HGB Conc 30.6 g/dL (31.6-35.5); Mean Corpuscular Hemoglobin 30.9 pg (28.0-33.3); Mean Corpuscular Volume 101.1 fL (83.0-100.0); Mean Platelet Volume 9.9 fL (9.4-12.4); Monocytes # 0.7 K/mcL (0.0-1.3); Monocytes % 5.2 %; Neutrophils # 11.4 K/mcL (1.6-8.9); Platelet Count 192 K/mcL (140-400); Red Blood Count 2.62 M/mcL (3.82-4.97); Red Cell Distribution Width 16.8 % (11.5-14.5); Segmented Neutrophils % 86.4 %; White Blood Count 13.2 K/mcL (4.3-11.1)
[2020-02-14 02:58] LABS: Calcium 8.5 mg/dL (8.6-10.3); Potassium 4.7 mEq/L (3.5-5.1)
[2020-02-14] MEDS: Ipratropium/Albuterol Neb 3 ML IH SCH ×4 (03:25→15:23)
[2020-02-14] MEDS: *HR* Heparin 5,000 UNIT/ML VIAL SQ SCH (05:43)
[2020-02-14] MEDS: HYDROcodone BIT/Homatropine LQ 5 MG/5 ML UDC PO PRN (05:44)
[2020-02-14] MEDS: allopurinoL 100 MG TABLET PO SCH (08:59)
[2020-02-14] MEDS: Cyanocobalamin (B-12) 1,000 MCG TABLET PO SCH (08:59)
[2020-02-14] MEDS: Gabapentin 100 MG CAPSULE PO SCH (08:59)
[2020-02-14] MEDS: Metoprolol XL (24 HR) Succ 50 MG TAB.ER.24H PO SCH (08:59)
[2020-02-14] MEDS: Lactulose Oral Soln 20 GM/30 ML UDC PO SCH (09:00)
[2020-02-14] MEDS: Insulin LISPRO 300 UNITS/3 ML VIAL SQ SCH ×6 (09:00→16:37)
[2020-02-14] MEDS: Insulin DETEMIR 100 UNIT/ML X5UNITS SQ SCH (09:06)
[2020-02-14 12:55] VITALS: BP 149/99
== END 2020-02-14 17:15 | disposition home or self-care (01) | DRG 194 ==
LOC: 2ANU 15:32 → EMEROOARM 15:32 → SUATTDRO 18:18 → 2ANU 18:42
PROVIDERS: ADMIT Pharmacist; ATTEND Internal Medicine

== ENCOUNTER 2020-03-29 13:38 | Inpatient (IN) ==
[2020-03-29] MEDS ORDERED: Dextrose Gel 15 GM/37.5 ML TUBE PO PRN ×2 (16:27)
[2020-03-29] MEDS ORDERED: *HR* Dextrose 50 % in Water (Vial) 50 ML VIAL IVP PRN (16:27)
[2020-03-29] MEDS ORDERED: D5% in Water 1,000 ML IVC PRN (16:27)
[2020-03-29] MEDS ORDERED: Ipratropium/Albuterol Neb 3 ML IH PRN (16:29)
[2020-03-29] MEDS ORDERED: Naloxone 0.4 MG/ML INJ IVP PRN (16:30)
[2020-03-29] MEDS ORDERED: Ondansetron 4 MG/2 ML VIAL IVP PRN (16:30)
[2020-03-29 17:04] LABS: Adenovirus Not Detected (Not Detect); Bordetella Pertussis Not Detected (Not Detect); Chlamydophila pneumoniae Not Detected (Not Detect); Coronavirus 229E Not Detected (Not Detect); Coronavirus HKU1 Not Detected (Not Detect); Coronavirus NL63 Not Detected (Not Detect); Coronavirus OC43 Not Detected (Not Detect); Human Metapneumovirus Not Detected (Not Detect); Human Rhinovirus/Enterovirus Not Detected (Not Detect); Influenza A Subtype 2009 H1 Not Detected (Not Detect); Influenza B Not Detected (Not Detect); Mycoplasma pneumoniae Not Detected (Not Detect); Parainfluenza Virus 1 Not Detected (Not Detect); Parainfluenza Virus 2 Not Detected (Not Detect); Parainfluenza Virus 3 Not Detected (Not Detect); Parainfluenza Virus 4 Not Detected (Not Detect); Respiratory Syncytial Virus Not Detected (Not Detect)
[2020-03-29] MEDS ORDERED: Perflutren Lipid Microsphere 1.3 ML in 0.9 % Sodium Chloride 8.7 ML IVP PRN (17:44)
[2020-03-29] MEDS: Insulin LISPRO 300 UNITS/3 ML VIAL SQ SCH ×2 (18:24→23:53)
[2020-03-29] MEDS: Piperacillin/Tazobactam 3.375 GM in 0.9 % Sodium Chloride Mini Bag 100 ML IVPB SCH (18:30)
[2020-03-29 19:42] LABS: Calcium 8.6 mg/dL (8.6-10.3); Potassium 4.4 mEq/L (3.5-5.1)
[2020-03-29] MEDS ORDERED: *HR* Promethazine 25 MG/ML VIAL IVP ONE (22:07)
[2020-03-30 02:31] LABS: Basophils # 0.1 K/mcL (0.0-0.2); Basophils % 0.4 %; Eosinophils # 0.2 K/mcL (0.0-0.6); Eosinophils % 1.8 %; Hematocrit 30.8 % (35.3-44.9); Hemoglobin 9.5 g/dL (11.5-15.4); Immature Granulocytes % 0.4 % (0-4); Lymphocytes # 3.1 K/mcL (0.6-4.6); Lymphocytes % 27.1 %; Mean Corpuscular HGB Conc 30.8 g/dL (31.6-35.5); Mean Corpuscular Hemoglobin 31.3 pg (28.0-33.3); Mean Corpuscular Volume 101.3 fL (83.0-100.0); Mean Platelet Volume 8.8 fL (9.4-12.4); Monocytes # 1.1 K/mcL (0.0-1.3); Monocytes % 9.3 %; Platelet Count 169 K/mcL (140-400); Red Blood Count 3.04 M/mcL (3.82-4.97); Red Cell Distribution Width 17.3 % (11.5-14.5); White Blood Count 11.4 K/mcL (4.3-11.1)
[2020-03-30 02:50] LABS: Calcium 8.6 mg/dL (8.6-10.3); Magnesium 2.2 mg/dL (1.6-2.6); Potassium 4.5 mEq/L (3.5-5.1)
[2020-03-30] MEDS ORDERED: *HR* Promethazine 25 MG/ML VIAL IVP ONE (03:09)
[2020-03-30] MEDS: Piperacillin/Tazobactam 3.375 GM in 0.9 % Sodium Chloride Mini Bag 100 ML IVPB SCH ×2 (05:34→18:22)
[2020-03-30] MEDS: Insulin LISPRO 300 UNITS/3 ML VIAL SQ SCH ×3 (05:35→16:13)
[2020-03-30] MEDS ORDERED: 0.9 % Sodium Chloride 250 ML IVC PRN (06:59)
[2020-03-30] MEDS ORDERED: 0.9 % Sodium Chloride 1,000 ML PRIME SCH (07:00)
[2020-03-30] MEDS ORDERED: 0.9 % Sodium Chloride 2,000 ML ONE (07:18)
[2020-03-30 08:20] LABS: Hepatitis B Surface Antibody < 3.10 mIU/mL
[2020-03-30 08:30] LABS: Hepatitis B Surface Antigen Nonreactive (Nonreactive)
[2020-03-30] MEDS: Metoprolol XL (24 HR) Succ 50 MG TAB.ER.24H PO SCH (10:19)
[2020-03-30] MEDS: Aspirin Enteric Coated 81 MG Tablet PO SCH (10:19)
[2020-03-30] MEDS: Apixaban 5 MG TABLET PO SCH ×2 (14:31→22:02)
[2020-03-30 16:20] LABS: Calcium 8.3 mg/dL (8.6-10.3); Potassium 3.5 mEq/L (3.5-5.1)
[2020-03-30 18:13] LABS: Adenovirus F 40/41 PCR Not detected (Not detect); Astrovirus PCR Not detected (Not detect); C.difficile Toxin A/B Gene PCR Not detected (Not detect); Campylobacter by PCR Not detected (Not detect); Cryptosporidium by PCR Not detected (Not detect); Cyclospora cayetanensis PCR Not detected (Not detect); E. coli O157 by PCR Not detected (Not detect); Entamoeba histolytica PCR Not detected (Not detect); Enteroaggregative E.coli(EAEC) Not detected (Not detect); Enteropathogenic E.coli(EPEC) Not detected (Not detect); Enterotoxigenic E.coli (ETEC) Not detected (Not detect); Giardia lamblia PCR Not detected (Not detect); Norovirus GI/GII PCR Not detected (Not detect); Plesiomonas shigelloides PCR Not detected (Not detect); Rotavirus A PCR Not detected (Not detect); Salmonella PCR Not detected (Not detect); Sapovirus PCR Not detected (Not detect); Shig/EnteroinvasiveE coli EIEC Not detected (Not detect); Shigalike tox-prod E coli STEC Not detected (Not detect); Vibrio PCR Not detected (Not detect); Vibrio cholerae PCR Not detected (Not detect); Yersinia enterocolitica PCR Not detected (Not detect)
[2020-03-30] MEDS: *HR* HYDROcodone/Acet 5/325 mg TABLET PO PRN (22:02)
[2020-03-31] MEDS: Insulin LISPRO 300 UNITS/3 ML VIAL SQ SCH ×4 (00:28→17:27)
[2020-03-31 03:17] LABS: Basophils % 0.3 %; Eosinophils # 0.2 K/mcL (0.0-0.6); Eosinophils % 2.4 %; Hematocrit 26.9 % (35.3-44.9); Hemoglobin 8.7 g/dL (11.5-15.4); Immature Granulocytes % 0.3 % (0-4); Lymphocytes # 1.6 K/mcL (0.6-4.6); Lymphocytes % 26.1 %; Mean Corpuscular HGB Conc 32.3 g/dL (31.6-35.5); Mean Corpuscular Hemoglobin 32.7 pg (28.0-33.3); Mean Corpuscular Volume 101.1 fL (83.0-100.0); Monocytes # 1.1 K/mcL (0.0-1.3); Monocytes % 17.6 %; Neutrophils # 3.4 K/mcL (1.6-8.9); Platelet Count 132 K/mcL (140-400); Red Blood Count 2.66 M/mcL (3.82-4.97); Red Cell Distribution Width 17.4 % (11.5-14.5); Segmented Neutrophils % 53.3 %; White Blood Count 6.3 K/mcL (4.3-11.1)
[2020-03-31 03:36] LABS: Potassium 3.3 mEq/L (3.5-5.1)
[2020-03-31 04:01] LABS: Folate 7.8 ng/mL (3.0-16.0)
[2020-03-31 04:06] LABS: Vitamin B12 > 1500 pg/mL (250-1100)
[2020-03-31] MEDS: Piperacillin/Tazobactam 3.375 GM in 0.9 % Sodium Chloride Mini Bag 100 ML IVPB SCH ×2 (05:18→17:55)
[2020-03-31] MEDS ORDERED: 0.9 % Sodium Chloride 250 ML IVC PRN (07:00)
[2020-03-31] MEDS: Metoprolol XL (24 HR) Succ 50 MG TAB.ER.24H PO SCH (09:07)
[2020-03-31] MEDS: Aspirin Enteric Coated 81 MG Tablet PO SCH (09:15)
[2020-03-31] MEDS: Apixaban 5 MG TABLET PO SCH ×2 (09:15→20:47)
[2020-03-31] MEDS: *HR* HYDROcodone/Acet 5/325 mg TABLET PO PRN (09:16)
[2020-03-31] MEDS ORDERED: Isovue-370 500 ML BOTTLE IVP ONE (10:41)
[2020-03-31] MEDS: Acetaminophen 325 MG TABLET PO PRN (17:55)
[2020-03-31] MEDS: QUEtiapine Fumarate 25 MG TABLET PO SCH (17:55)
[2020-03-31] MEDS ORDERED: methocarbamoL 500 MG TABLET PO PRN (21:14)
[2020-03-31] MEDS ORDERED: Acetaminophen 325 MG TABLET PO ONE (21:17)
[2020-04-01] MEDS: Acetaminophen 325 MG TABLET PO PRN ×2 (02:13→09:29)
[2020-04-01] MEDS: Piperacillin/Tazobactam 3.375 GM in 0.9 % Sodium Chloride Mini Bag 100 ML IVPB SCH ×2 (05:34→17:35)
[2020-04-01 05:59] LABS: Hematocrit 28.8 % (35.3-44.9); Mean Corpuscular HGB Conc 31.3 g/dL (31.6-35.5); Mean Corpuscular Hemoglobin 30.6 pg (28.0-33.3); Mean Platelet Volume 8.9 fL (9.4-12.4); Platelet Count 129 K/mcL (140-400); Red Blood Count 2.94 M/mcL (3.82-4.97); Red Cell Distribution Width 17.7 % (11.5-14.5); White Blood Count 6.4 K/mcL (4.3-11.1)
[2020-04-01 06:24] LABS: Calcium 8.3 mg/dL (8.6-10.3); Magnesium 1.9 mg/dL (1.6-2.6); Potassium 3.4 mEq/L (3.5-5.1)
[2020-04-01] MEDS: Insulin LISPRO 300 UNITS/3 ML VIAL SQ SCH ×3 (07:48→18:00)
[2020-04-01] MEDS: allopurinoL 100 MG TABLET PO SCH (09:28)
[2020-04-01] MEDS: Apixaban 5 MG TABLET PO SCH ×2 (09:29→20:08)
[2020-04-01] MEDS: Metoprolol XL (24 HR) Succ 50 MG TAB.ER.24H PO SCH (09:29)
[2020-04-01] MEDS: Aspirin Enteric Coated 81 MG Tablet PO SCH (09:29)
[2020-04-01] MEDS: *HR* HYDROcodone/Acet 5/325 mg TABLET PO PRN ×3 (13:22→23:34)
[2020-04-01] MEDS: QUEtiapine Fumarate 25 MG TABLET PO SCH (20:09)
[2020-04-02] MEDS: Acetaminophen 325 MG TABLET PO PRN (01:50)
[2020-04-02 03:06] LABS: Hematocrit 28.2 % (35.3-44.9); Hemoglobin 8.8 g/dL (11.5-15.4); Mean Corpuscular HGB Conc 31.2 g/dL (31.6-35.5); Mean Corpuscular Hemoglobin 31.4 pg (28.0-33.3); Mean Corpuscular Volume 100.7 fL (83.0-100.0); Platelet Count 113 K/mcL (140-400); Red Cell Distribution Width 17.9 % (11.5-14.5); White Blood Count 7.8 K/mcL (4.3-11.1)
[2020-04-02 03:20] LABS: Calcium 8.4 mg/dL (8.6-10.3); Potassium 3.6 mEq/L (3.5-5.1)
[2020-04-02] MEDS: *HR* HYDROcodone/Acet 5/325 mg TABLET PO PRN ×4 (04:12→22:00)
[2020-04-02] MEDS: Metoprolol XL (24 HR) Succ 50 MG TAB.ER.24H PO SCH (04:13)
[2020-04-02] MEDS: Piperacillin/Tazobactam 3.375 GM in 0.9 % Sodium Chloride Mini Bag 100 ML IVPB SCH ×2 (05:44→17:45)
[2020-04-02] MEDS ORDERED: 0.9 % Sodium Chloride 250 ML IVC PRN (06:47)
[2020-04-02] MEDS: Insulin LISPRO 300 UNITS/3 ML VIAL SQ SCH ×3 (08:34→17:35)
[2020-04-02] MEDS: Aspirin Enteric Coated 81 MG Tablet PO SCH (09:45)
[2020-04-02] MEDS: Apixaban 5 MG TABLET PO SCH ×2 (09:45→22:00)
[2020-04-02] MEDS: allopurinoL 100 MG TABLET PO SCH (09:45)
[2020-04-02] MEDS ORDERED: QUEtiapine Fumarate 25 MG TABLET PO ONE (10:00)
[2020-04-02] MEDS ORDERED: *HR* Heparin 10,000 UNIT/10 ML VIAL IV PRN (12:00)
[2020-04-02] MEDS: amLODIPine 5 MG TABLET PO SCH (18:15)
[2020-04-02] MEDS: QUEtiapine Fumarate 25 MG TABLET PO SCH (22:00)
[2020-04-03] MEDS: *HR* HYDROcodone/Acet 5/325 mg TABLET PO PRN ×2 (02:25→09:37)
[2020-04-03] MEDS: Piperacillin/Tazobactam 3.375 GM in 0.9 % Sodium Chloride Mini Bag 100 ML IVPB SCH (05:53)
[2020-04-03] MEDS: Acetaminophen 325 MG TABLET PO PRN ×2 (05:54→11:33)
[2020-04-03 06:51] LABS: Potassium 3.6 mEq/L (3.5-5.1)
[2020-04-03] MEDS ORDERED: levETIRAcetam 250 MG TABLET PO SCH (09:00)
[2020-04-03] MEDS: Metoprolol XL (24 HR) Succ 50 MG TAB.ER.24H PO SCH (09:14)
[2020-04-03] MEDS: Aspirin Enteric Coated 81 MG Tablet PO SCH (09:14)
[2020-04-03] MEDS: amLODIPine 5 MG TABLET PO SCH (09:14)
[2020-04-03] MEDS: Apixaban 5 MG TABLET PO SCH (09:15)
[2020-04-03] MEDS: allopurinoL 100 MG TABLET PO SCH (09:15)
[2020-04-03] MEDS: Insulin LISPRO 300 UNITS/3 ML VIAL SQ SCH ×3 (09:15→17:06)
[2020-04-03 15:51] VITALS: BP 161/66
== END 2020-04-03 17:50 | disposition short-term general hospital (02) | DRG 45 ==
LOC: CDU → SUATTDRO 15:40 → 2ANU 17:08
PROVIDERS: ADMIT Family Medicine; ATTEND Internal Medicine